=== PATIENT | female | born 2000 | race Hispanic/Latino ===

== ENCOUNTER 2020-04-06 05:06 | Emergency (ER) | payer BC, OTHER ==
[2020-04-06] MEDS ORDERED: NA CHLORIDE 0.9% 1,000 ML ONE (05:38)
--- NOTE | 2020-04-06 05:54 | EDPHYS ---
Physician Documentation [facility] Name: Cruzito Eastman Age: 19 yrs Sex: Female : 2000 Arrival Date: 04/06/2020 Time: 05:10 Bed 6 Private MD: Apurva Fleming ED Physician Matthew Klein HPI: 04/06 05:45 This 19 yrs old Female presents to ER via Ambulatory with complaints of Psych juan Problem. 05:45 The patient presents to the emergency department with anxiety, depression, suicide juan ideation, but the patient has no formulated plan. Onset: The symptoms/episode began/occurred just prior to arrival. Past psychiatric history: Prior diagnosis: bipolar disorder, depression, Psychiatric medications include: Zoloft, risperdone. Associated signs and symptoms: Pertinent positives; suicide ideation. Severity of symptoms: At their worst the symptoms were moderate in the emergency department the symptoms are unchanged are worse mildly. The patient has experienced similar episodes in the past, several times. 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 - Social history:: Smoking status: Patient denies any tobacco usage or history of. Patient uses street drugs, marijuana, Patient/guardian denies using alcohol. ROS: 05:48 Constitutional: Negative for fever, chills, and weight loss, Eyes: Negative for injury, juan pain, redness, and discharge, ENT: Negative for injury, pain, and discharge, Neck: Negative for injury, pain, and swelling, Cardiovascular: Negative for chest pain, palpitations, and edema, Respiratory: Negative for shortness of breath, cough, wheezing, and pleuritic chest pain, Abdomen/GI: Negative for abdominal pain, nausea, vomiting, diarrhea, and constipation, Back: Negative for injury and pain, : Negative for injury, bleeding, discharge, and swelling, MS/Extremity: Negative for injury and deformity, Skin: Negative for injury, rash, and discoloration, Neuro: Negative for headache, weakness, numbness, tingling, and seizure, Allergy/Immunology: Negative for hives, rash, and allergies, Endocrine: Negative for neck swelling, polydipsia, polyuria, polyphagia, and marked weight changes, Hematologic/Lymphatic: Negative for swollen nodes, abnormal bleeding, and unusual bruising. 05:48 Psych: Positive for anxiety, depression, suicidal ideation. Exam: 05:48 Constitutional: This is a well developed, well nourished patient who is awake, alert, juan and in no acute distress. Head/Face: Normocephalic, atraumatic. Eyes: Pupils equal round and reactive to light, extra-ocular motions intact. Lids and lashes normal. Conjunctiva and sclera are non-icteric and not injected. Cornea within normal limits. Periorbital areas with no swelling, redness, or edema. ENT: Nares patent. No nasal discharge, no septal abnormalities noted. Tympanic membranes are normal and external auditory canals are clear. Oropharynx with no redness, swelling, or masses, exudates, or evidence of obstruction, uvula midline. Mucous membranes moist. Neck: Trachea midline, no thyromegaly or masses palpated, and no cervical lymphadenopathy. Supple, full range of motion without nuchal rigidity, or vertebral point tenderness. No Meningismus. Chest/axilla: Normal chest wall appearance and motion. Nontender with no deformity. No lesions are appreciated. Cardiovascular: Regular rate and rhythm with a normal S1 and S2. No gallops, murmurs, or rubs. Normal PMI, no JVD. No pulse deficits. Respiratory: Lungs have equal breath sounds bilaterally, clear to auscultation and percussion. No rales, rhonchi or wheezes noted. No increased work of breathing, no retractions or nasal flaring. Abdomen/GI: Soft, non-tender, with normal bowel sounds. No distension or tympany. No guarding or rebound. No evidence of tenderness throughout. Back: No spinal tenderness. No costovertebral tenderness. Full range of motion. Skin: Warm, dry with normal turgor. Normal color with no rashes, no lesions, and no evidence of cellulitis. MS/ Extremity: Pulses equal, no cyanosis. Neurovascular intact. Full, normal range of motion. Neuro: Awake and alert, GCS 15, oriented to person, place, time, and situation. Cranial nerves II-XII grossly intact. Motor strength 5/5 in all extremities. Sensory grossly intact. Cerebellar exam normal. Normal gait. 05:48 Psych: Behavior/mood is cooperative, suicidal, Affect is calm, Oriented to Patient has no thoughts/intents to harm self or others. Judgement / Insight is normal. Memory is normal. Delusions/hallucinations are not present. 06:05 ECG was reviewed by the Attending Physician. [facility] Vital Signs: 05:30 BP 136 / 94; Pulse 98; Resp 16 S; Temp 98.7(O); Pulse Ox 99% on R/A; Weight 58.97 kg bb (R); Height 5 ft. 3 in. (160.02 cm) (R); Pain 2/10; 09:27 BP 133 / 89; Pulse 88; Resp 17; Pulse Ox 99% ; rb1 05:30 Body Mass Index 23.03 (58.97 kg, 160.02 cm) bb MDM: 05:23 Patient medically screened. juan 05:50 Differential diagnosis: drug withdrawal. acute psychotic break, depression. Data juan reviewed: vital signs, nurses notes, lab test result(s), EKG. Data interpreted: monitor and storage bin tender: rate is 98 beats/min, rhythm is atrial fibrillation, Pulse oximetry: on room air is 99 %. Test interpretation: by ED physician or midlevel provider: ECG. Counseling: I had a detailed discussion with the patient and/or guardian regarding: the historical points, exam findings, and any diagnostic results supporting the discharge/admit diagnosis, lab results, the need to transfer to another facility, for higher level of care, [facility] does not immediately have the required specialist. 09:22 ED course: Report given to Dr. Naranjo. The patient remained stable in the ED and did kdr not require any intervention. 04/06 05:19 Order name: Acetaminophen [facility] 04/06 05:19 Order name: Basic Metabolic Panel [facility] 04/06 05:19 Order name: CBC with Diff [facility] 04/06 05:19 Order name: ETOH Level [facility] 04/06 05:19 Order name: Hepatic Function [facility] 04/06 05:19 Order name: PT-INR; Complete Time: 06:49 [facility] 04/06 05:19 Order name: Ptt, Activated; Complete Time: 06:49 [facility] 04/06 05:19 Order name: Salicylate; Complete Time: 06:49 [facility] 04/06 05:19 Order name: Urine Drug Screen; Complete Time: 06:49 [facility] 04/06 05:19 Order name: Acetaminophen Level; Complete Time: 06:49 [facility] 04/06 05:19 Order name: Basic Metabolic Panel; Complete Time: 06:49 [facility] 04/06 05:19 Order name: CBC with Automated Diff; Complete Time: 06:49 [facility] 04/06 05:19 Order name: Alcohol Serum/Plasma; Complete Time: 06:49 [facility] 04/06 05:19 Order name: Liver (Hepatic) Function; Complete Time: 06:49 [facility] 04/06 05:19 Order name: Urine Test (obtain specimen); Complete Time: 05:52 [facility] 04/06 05:19 Order name: EKG; Complete Time: 05:19 [facility] 04/06 05:19 Order name: EKG - Nurse/Tech; Complete Time: 06:22 [facility] 04/06 05:19 Order name: IV Saline Lock; Complete Time: 05:46 [facility] 04/06 05:19 Order name: Labs collected and sent; Complete Time: 05:46 [facility] 04/06 05:19 Order name: Urine Dipstick-Ancillary (obtain specimen); Complete Time: 05:52 [facility] 04/06 05:52 Order name: Urine Dipstick--Ancillary (enter results) 04/06 05:52 Order name: Urine --Ancillary (enter results) [facility] 04/06 06:50 Order name: SARS-COV-2 RT PCR EDMS EC:05 Rate is 80 beats/min. Rhythm is regular. QRS [place] is Normal. MO interval is normal. QRS juan interval is normal. QT interval is normal. No Q waves. T waves are Normal. No ST changes noted. Clinical impression: NSR w/ Non-specific ST/T Changes and No evidence of ischemia. Interpreted by me. Administered Medications: 05:46 Drug: NS 0.9% 1000 ml Route: IV; Rate: 1 bolus; Site: right hand; rr5 06:30 Follow up: IV Status: Completed infusion; IV Intake: 1000ml lp1 Disposition: 04/06/20 05:52 Transfer ordered to Psych Facility. Diagnosis are Bipolar disorder, Major depressive disorder, recurrent, Suicidal ideations. - Reason for transfer: Higher level of care. - Accepting physician is tp psych. - Condition is Stable. - Problem is new. - Symptoms have improved. Signatures: Dispatcher [employer] [facility] Matthew Klein MD MD cha Rittger, Kevin, MD MD kdr Ballard, Brenda RN RN bb Natalia Kirk, RN RN rb1 Brice Tinoco RN RN rr5 Daniela Donald RN lp1 Corrections: (The following items were deleted from the chart) 06:50 06:06 CORONAVIRUS+MR.LAB.BRZ ordered. [facility] 09:28 05:52 04/06/2020 05:52 Transfer ordered to Psych Facility. Diagnosis is Bipolar rb1 disorder; Major depressive disorder, recurrent; Suicidal ideations. Reason for transfer: Higher level of care. Accepting physician is tp psych. Condition is Stable. Problem is new. Symptoms have improved. juan
--- NOTE | 2020-04-06 05:54 | ER ---
Nurse's Notes [facility] Name: Cruzito Eastman Age: 19 yrs Sex: Female : 2000 Arrival Date: 04/06/2020 Time: 05:10 Bed 6 Private MD: Apurva Fleming Diagnosis: Bipolar disorder;Major depressive disorder, recurrent;Suicidal ideations Presentation: 04/06 05:30 Chief complaint: Patient states: she is going through a lot of changes in her life bb right now and she does not do well with change consequently she feels like if she goes home tonight she will try to kill herself. She has a plan of cutting her wrists and she has had a past history of suicidal ideations. Coronavirus screen: At this time, the client does not indicate any symptoms associated with coronavirus-19. Ebola Screen: No symptoms or risks identified at this time. Initial Sepsis Screen: Does the patient meet any 2 criteria? No. Patient's initial sepsis screen is negative. Does the patient have a suspected source of infection? No. Patient's initial sepsis screen is negative. Risk Assessment: Do you want to hurt yourself or someone else? Patient reports no desire to harm self or others. Onset of symptoms was April 06, 2020. 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 - Social history:: Smoking status: Patient denies any tobacco usage or history of. Patient uses street drugs, marijuana, Patient/guardian denies using alcohol. Screenin:40 Abuse screen: Denies threats or abuse. Nutritional screening: No deficits noted. bb Tuberculosis screening: No symptoms or risk factors identified. Fall Risk None identified. Assessment: 06:00 General: Appears in no apparent distress. Behavior is crying. Pain: Denies pain. Neuro: lp1 Level of Consciousness is awake, alert, obeys commands, Oriented to person, place, time, situation. Cardiovascular: Patient's skin is warm and dry. Respiratory: Respiratory effort is even, unlabored. GI: Abdomen is non-distended. : No signs and/or symptoms were reported regarding the genitourinary system. EENT: No signs and/or symptoms were reported regarding the EENT system. Derm: Skin is pink, warm \T\ dry. Musculoskeletal: No deficits noted. 06:41 Reassessment: Patient appears in no apparent distress at this time. Patient is alert, lp1 oriented x 3, equal unlabored respirations, skin warm/dry/pink. Patient 's mother at bedside. 06:54 Reassessment: Patient upset with mother, requests to have mother removed; mother left lp1 at this time. 06:58 Reassessment: Nurse to nurse report given to Daisy at [facility]. lp1 07:05 General: Appears in no apparent distress. comfortable, Behavior is calm, cooperative. rb1 Neuro: Level of Consciousness is awake, alert, obeys commands, Oriented to person, place, time, situation. Respiratory: Airway is patent Respiratory effort is even, unlabored, Respiratory pattern is regular, symmetrical. Derm: Skin is pink, warm \T\ dry. 07:58 Reassessment: Spoke to the pt. grandmother via telephone with pt permission, rb1 grandmother was updated on POC. 08:00 Reassessment: Patient appears in no apparent distress at this time. Patient and/or rb1 family updated on plan of care and expected duration. Pain level reassessed. Patient is alert, oriented x 3, equal unlabored respirations, skin warm/dry/pink. 08:17 Reassessment: With the pt. permission, I gave her grandmother her keys to take home. rb1 09:00 Reassessment: Patient appears in no apparent distress at this time. No changes from rb1 previously documented assessment. 09:26 Reassessment: Gave report to [facility]. Information from the SBAR was given, all rb1 questions asked and answered. Sent pt. belongings with the pt upon transfer. Psych: 05:30 Safety Checks: Personal items have been removed. Door is open. No visitors are present lp1 at this time. 05:38 Subjective: Patient's mood is sad, Having thoughts of suicide. Plan for suicide is cut bb her wrists. Objective: Patient is cooperative, Speech is pressured. Interventions: Removed personal items and placed in bag. Patient placed in hospital gown. Urine collected and sent for urine drug test. Suicide Risk Assessment: Sad Person Scale: Sex of patient: Female: Score 0 points. Age of patient: Score 1 point if patient 15-34. Depression: Score 1 point if signs of depression are present. Previous Attempt: Score 1 point if patient has previously attempted suicide. Substance Abuse: Score 1 point if patient abuses alcohol or drugs. Rational Thinking: Score 0 point if patient has rational thinking. Social Support: Score 1 point if social support is lacking and/or unavailable. Organized Plan: Score 1 point if patient had a plan in place. TOTAL POINTS: If total points are 5-6, proposed clinical action is to strongly consider hospitalization, depending upon confidence in the follow-up arrangement. Implement suicide precautions. 05:40 Patient uses marijuana. bb Vital Signs: 05:30 BP 136 / 94; Pulse 98; Resp 16 S; Temp 98.7(O); Pulse Ox 99% on R/A; Weight 58.97 kg bb (R); Height 5 ft. 3 in. (160.02 cm) (R); Pain 2/10; 09:27 BP 133 / 89; Pulse 88; Resp 17; Pulse Ox 99% ; rb1 05:30 Body Mass Index 23.03 (58.97 kg, 160.02 cm) bb ED Course: 05:10 Patient arrived in ED. am2 05:10 Apurva Fleming MD is Private Physician. am2 05:18 Matthew Klein MD is Attending Physician. juan 05:35 Triage completed. bb 05:37 Arm band placed on Patient placed in an exam room, on a stretcher, on pulse oximetry. bb 05:40 Patient has correct armband on for positive identification. Placed in gown. Bed in low bb position. Side rails up X2. Warm blanket given. 05:44 Inserted saline lock: 20 gauge in right hand, using aseptic technique. Blood collected. rr5 06:21 Daniela Donald, NEIL is Primary Nurse. lp1 06:37 Faxed pt. clinical's to [facility]. ar5 06:54 connected Daisy Cartwright from [facility] with Daniela Cartwright for patient transfer ar5 consultation. 07:15 administrative approval given by Lupe Philip/ patient has been accepted to [facility]/ Dr. Naranjo has accepted the patient in transfer. 07:[address]aranjo with Dr. Choi for patient transfer consultation. 08:33 Primary Nurse role handed off by Daniela Donald, RN rb1 08:33 Natalia Kirk, RN is Primary Nurse. rb1 09:28 No provider procedures requiring assistance completed. IV discontinued, intact, rb1 bleeding controlled, No redness/swelling at site. Pressure dressing applied. Administered Medications: 05:46 Drug: NS 0.9% 1000 ml Route: IV; Rate: 1 bolus; Site: right hand; rr5 06:30 Follow up: IV Status: Completed infusion; IV Intake: 1000ml lp1 Intake: 06:30 IV: 1000ml; Total: 1000ml. lp1 Outcome: 05:52 ER care complete, transfer ordered by . [facility] 09:28 Patient left the ED. rb1 09:28 Transferred by ground EMS Transfer form completed. rb1 09:28 Condition: stable 09:28 Instructed on the need for transfer. Signatures: Matthew Klein MD MD cha Ballard, Brenda, RN RN bb Daniela Donald, RN RN lp1 Natalia Kirk, RN RN rb1 Judy Sanders am2 Lucila Avila Raymond, RN RN rr5 Kim Chen ar5 Corrections: (The following items were deleted from the chart) 07:31 07:29 administrative approval given by Lupe Philip/ patient has been accepted to [facility]/ Dr. Naranjo has accepted the patient in transfer. 09:34 09:26 Reassessment: Gave report to [facility]. Information from the SB[facility] was given, rb1 all questions asked and answered. rb1
[2020-04-06 05:57] LABS: Absolute Lymphocytes (CBC) 2.8 K/uL (0.7-4.9); Hematocrit 40.8 % (36.0-45.0); Lymphocytes % 33.4 % (15.3-44.8); MPV 8.4 fL (7.6-11.3); RBC Red Blood Cell Count 4.73 M/uL (3.86-4.86)
[2020-04-06 06:02] LABS: Protime INR 1.03
[2020-04-06 06:03] LABS: Barbiturates NEGATIVE (NEGATIVE); Benzodiazepines NEGATIVE (NEGATIVE); Cocaine NEGATIVE (NEGATIVE); METHAMPHETAM NEGATIVE (NEGATIVE); Methadone NEGATIVE (NEGATIVE); Opiates NEGATIVE (NEGATIVE); Phencyclidine NEGATIVE (NEGATIVE); THC Cannibis POSITIVE (NEGATIVE)
[2020-04-06 06:20] LABS: ALT/SGPT 25 U/L (12-78); AST/SGOT 19 U/L (15-37); Albumin 4.4 g/dL (3.4-5.0); Alkaline Phosphatase 113 U/L (45-117); BUN Blood Urea Nitrogen 11 mg/dL (7-18); Bicarbonate 25 mmol/L (21-32); Bilirubin Direct 0.1 mg/dL (0-0.2); Bilirubin Total 0.5 mg/dL (0.2-1.0); Glucose Level 94 mg/dL (74-106); Potassium 3.7 mmol/L (3.5-5.1); Protein, Total 8.5 g/dL (6.4-8.2); Sodium Level 140 mmol/L (136-145)
[2020-04-06 08:18] LABS: Urine Blood NEGATIVE (NEG); Urine Glucose NEGATIVE (NEG); Urine Protein NEGATIVE (NEG); Urine Specific Gravity >1.030 (1.005-1.030)
--- NOTE | 2020-04-06 08:20 | EKG ---
Test Date: 2020-04-06 Test Time: 05:55:28 [employer] Laborer: CASANDRA MEASUREMENT RESULTS: Intervals: Rate: 80 GA: 114 QRSD: 74 QT: 384 QTc: 442 [place]: P: 57 GA: 114 QRS: 76 T: 38 INTERPRETIVE STATEMENTS: Normal sinus rhythm with sinus arrhythmia Normal ECG No previous ECG available for comparison Electronically Signed On 04-06-20 08:19:13 CDT by Igor Wilder
[2020-04-06 09:46] VITALS: TEMP 98.7; O2SAT 99
[2020-04-06 09:48] VITALS: BP 133/89
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
== END 2020-04-06 09:28 ==
LOC: ER 05:06
DX: F33.9 Major depressive disorder, recurrent, unspecified (principal); Z20.828 Contact with and (suspected) exposure to other viral communicable diseases
CPT/HCPCS: 93005; 85025; 80048; 36415; 80320; 80329 ×2; 81025; 85610; 80076; 80307 ×8; 85730; 81003; 96360; 99285; U0003; J7030

== ENCOUNTER 2020-11-21 08:07 | Emergency (ER) | payer BC ==
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
[2020-11-21 10:26] LABS: Urine Blood Negative (Negative); Urine Glucose Negative (Negative); Urine Protein Negative (Negative); Urine pH 7.5 (5.0-7.0)
[2020-11-21 10:57] LABS: Absolute Lymphocytes (CBC) 1.8 K/uL (0.7-4.9); Basophils % 0.8 % (0-1.3); Lymphocytes % 25.5 % (15.3-44.8); MPV 8.6 fL (7.6-11.3); RBC Red Blood Cell Count 4.68 M/uL (3.86-4.86)
[2020-11-21] MEDS ORDERED: NA CHLORIDE 0.9% 1,000 ML ONE (11:09)
[2020-11-21] MEDS ORDERED: ONDANSETRON 4 MG/2 ML VIAL ONE (11:09)
[2020-11-21 11:19] LABS: ALT/SGPT 20 U/L (12-78); AST/SGOT 18 U/L (15-37); Alkaline Phosphatase 86 U/L (45-117); BUN Blood Urea Nitrogen 9 mg/dL (7-18); Bicarbonate 26 mmol/L (21-32); Bilirubin Direct 0.2 mg/dL (0-0.2); Bilirubin Total 0.7 mg/dL (0.2-1.0); Glucose Level 92 mg/dL (74-106); Lipase 83 U/L (73-393); Potassium 3.9 mmol/L (3.5-5.1); Protein, Total 7.9 g/dL (6.4-8.2); Sodium Level 138 mmol/L (136-145)
[2020-11-21 11:28] LABS: Urine Bacteria <20 /HPF (<20); Urine RBC <5 /HPF (NONE SEEN); Urine Urothelial Cells <5 /HPF (NONE SEEN)
--- NOTE | 2020-11-21 12:02 | RAD REPORT ---
EXAM DESCRIPTION: CT - Abdomen Pelvis W Contrast - 11/21/2020 11:36 am CLINICAL HISTORY: Abdominal pain/vomiting COMPARISON: none. TECHNIQUE: Computed axial tomography of the abdomen pelvis was obtained. 100 cc Isovue-300 was admin istered intravenously. Oral contrast was not requested which limits evaluation of bowel. All CT scans are performed using dose optimization technique as appropriate and may include automated exposure control or mA/KV adjustment according to patient size. FINDINGS: The liver, spleen, pancreas, adrenal and kidneys appear unremarkable. There is no evidence of diverticulitis. Normal appendix No adnexal mass. Trace amount of free fluid IMPRESSION: No acute abnormality is displayed.
--- NOTE | 2020-11-21 12:28 | ER ---
Nurse's Notes [facility] Name: Cruzito Eastman Age: 20 yrs Sex: Female : 2000 Arrival Date: 11/21/2020 Time: 08:11 Bed 16 Private MD: Diagnosis: Nausea with vomiting, unspecified;Diarrhea, unspecified Presentation: 11/21 09:10 Chief complaint: Patient states: vomiting and diarrhea that began 2-3 days ago. Pt aa5 states "the smell and texture of food just make me sick to my stomach and I can't eat" Reports intermittent abdominal cramping. 09:10 Coronavirus screen: diarrhea, nausea, vomiting. Ebola Screen: Patient negative for aa5 fever greater than or equal to 101.5 degrees Fahrenheit, and additional compatible Ebola Virus Disease symptoms. Initial Sepsis Screen: Does the patient meet any 2 criteria? No. Patient's initial sepsis screen is negative. Does the patient have a suspected source of infection? No. Patient's initial sepsis screen is negative. Risk Assessment: Do you want to hurt yourself or someone else? Patient reports no desire to harm self or others. Onset of symptoms was November 2020. 09:10 Acuity: DONI 3 aa5 09:10 Method Of Arrival: Ambulatory aa5 Historical: - Allergies: 09:11 No Known Allergies; aa5 - Home Meds: 09:11 None [Active]; aa5 - PMHx: 09:11 Bipolar disorder; PTSD; Asthma; aa5 - PSHx: 09:11 ear surgery; aa5 - Immunization history:: Adult Immunizations up to date. - Social history:: Smoking status: Patient denies any tobacco usage or history of. - Family history:: not pertinent. - Hospitalizations: : No recent hospitalization is reported. Screenin:00 Abuse screen: Denies threats or abuse. Denies injuries from another. Nutritional aj1 screening: No deficits noted. Tuberculosis screening: No symptoms or risk factors identified. 14:06 Fall Risk None identified. aj1 Assessment: 10:00 General: Appears in no apparent distress. comfortable, Behavior is calm, cooperative, aj1 appropriate for age. Pain: Complains of pain in abdomen Pain currently is 3 out of 10 on a pain scale. Neuro: Level of Consciousness is awake, alert, obeys commands, Oriented to person, place, time, situation. Cardiovascular: Patient's skin is warm and dry. Respiratory: Airway is patent Respiratory effort is even, unlabored, Respiratory pattern is regular, symmetrical. GI: Abdomen is flat, non-distended, Bowel sounds present X 4 quads. Abd is soft and non tender X 4 quads. Reports diarrhea, nausea, Patient currently denies vomiting. : No signs and/or symptoms were reported regarding the genitourinary system. EENT: No signs and/or symptoms were reported regarding the EENT system. Derm: No signs and/or symptoms reported regarding the dermatologic system. Skin is pink, warm \\T\\ dry. normal. Musculoskeletal: No signs and/or symptoms reported regarding the musculoskeletal system. Circulation, motion, and sensation intact. 11:23 Reassessment: Patient appears in no apparent distress at this time. No changes from [facility] previously documented assessment. Patient and/or family updated on plan of care and expected duration. Pain level reassessed. Patient is alert, oriented x 3, equal unlabored respirations, skin warm/dry/pink. 12:30 Reassessment: Patient appears in no apparent distress at this time. No changes from aj1 previously documented assessment. Patient and/or family updated on plan of care and expected duration. Pain level reassessed. Patient is alert, oriented x 3, equal unlabored respirations, skin warm/dry/pink. 13:30 Reassessment: Patient appears in no apparent distress at this time. No changes from [facility] previously documented assessment. Patient and/or family updated on plan of care and expected duration. Pain level reassessed. Patient is alert, oriented x 3, equal unlabored respirations, skin warm/dry/pink. Vital Signs: 09:10 BP 135 / 99; Pulse 76; Resp 18 S; Temp 99.0(O); Pulse Ox 99% on R/A; Weight 61.23 kg aa5 (R); Height 5 ft. 2 in. (157.48 cm) (R); Pain 0/10; 11:25 BP 115 / 75; Pulse 93; Resp 16; Pulse Ox 100% on R/A; aj1 14:05 BP 122 / 65; Pulse 88; Resp 16; Pulse Ox 100% on R/A; aj1 09:10 Body Mass Index 24.69 (61.23 kg, 157.48 cm) aa5 ED Course: 08:11 Patient arrived in ED. as 09:11 Arm band placed on. aa5 09:13 Triage completed. aa5 09:46 Magno Herbert MD is Attending Physician. rn 09:51 Jade Rodas RN is Primary Nurse. aj1 10:00 Patient has correct armband on for positive identification. Bed in low position. Call aj1 light in reach. 10:00 No provider procedures requiring assistance completed. aj1 10:30 Initial lab(s) drawn, by me, sent to lab. COVID swab sent to lab. Inserted saline lock: aj1 20 gauge in left antecubital area, using aseptic technique. Blood collected. 11:36 CT Abd/Pelvis - IV Contrast Only In Process Unspecified. EDMS 14:05 IV discontinued, intact, bleeding controlled, No redness/swelling at site. Pressure zb dressing applied. Administered Medications: 11:02 Drug: Zofran (Ondansetron) 4 mg Route: IVP; Site: left antecubital; aj1 14:07 Follow up: Response: No adverse reaction aj1 11:02 Drug: NS 0.9% 1000 ml Route: IV; Rate: 1000 ml; Site: left antecubital; aj1 14:06 Follow up: IV Status: Completed infusion; IV Intake: 1000ml aj1 Intake: 14:06 IV: 1000ml; Total: 1000ml. aj Outcome: 12:27 Discharge ordered by . rn 14:05 Discharged to home ambulatory. zb 14:05 Condition: good 14:05 Discharge instructions given to patient, Instructed on discharge instructions, follow up and referral plans. medication usage, Demonstrated understanding of instructions, follow-up care, medications, Prescriptions given X 1. 14:07 Patient left the ED. aj1 Signatures: Dispatcher [employer] EDMS Jade Rodas RN RN aj1 Carmen Madrid as Magno Herbert MD MD rn Calderon, Audri, RN RN Ashley Nazario RN RN zb
--- NOTE | 2020-11-21 12:28 | EDPHYS ---
Physician Documentation [facility] Name: Cruzito Eastman Age: 20 yrs Sex: Female : 2000 Arrival Date: 11/21/2020 Time: 08:11 Bed 16 Private MD: ED Physician Magno Herbert HPI: 11/21 10:02 This 20 yrs old Female presents to ER via Ambulatory with complaints of rn Nausea/Vomiting. 10:02 The patient presents to the emergency department with nausea, vomiting, diarrhea. rn Onset: The symptoms/episode began/occurred 3 day(s) ago. Possible causes: unknown. The symptoms are aggravated by nothing. The symptoms are alleviated by nothing. Associated signs and symptoms: Pertinent positives: abdominal pain, diarrhea, nausea, vomiting, Pertinent negatives: fever, GI bleeding. Severity of symptoms: At their worst the symptoms were moderate in the emergency department the symptoms are unchanged. The patient has not experienced similar symptoms in the past. The patient has not recently seen a physician. Historical: - Allergies: 09:11 No Known Allergies; aa5 - Home Meds: 09:11 None [Active]; aa5 - PMHx: 09:11 Bipolar disorder; PTSD; Asthma; aa5 - PSHx: 09:11 ear surgery; aa5 - Immunization history:: Adult Immunizations up to date. - Social history:: Smoking status: Patient denies any tobacco usage or history of. - Family history:: not pertinent. - Hospitalizations: : No recent hospitalization is reported. ROS: 10:03 Constitutional: Negative for fever, chills, and weight loss, Eyes: Negative for injury, rn pain, redness, and discharge, Neck: Negative for injury, pain, and swelling, Cardiovascular: Negative for chest pain, palpitations, and edema, Respiratory: Negative for shortness of breath, cough, wheezing, and pleuritic chest pain, Abdomen/GI: + abd pain, + nausea, + diarrhea Back: Negative for injury and pain, : + increased frequency MS/Extremity: Negative for injury and deformity, Skin: Negative for injury, rash, and discoloration, Neuro: Negative for headache, weakness, numbness, tingling, and seizure. Exam: 10:03 Constitutional: This is a well developed, well nourished patient who is awake, alert, rn and in no acute distress. Ambulatory to room without assistance. Head/Face: Normocephalic, atraumatic. Eyes: Periorbital areas with no swelling, redness, or edema. ENT: MMM Cardiovascular: Regular rate and rhythm. No pulse deficits. Respiratory: No increased work of breathing, no retractions or nasal flaring. Abdomen/GI: soft, mild tenderness all 4 quadrants, no rebound, no masses Skin: Warm, dry MS/ Extremity: Pulses equal, no cyanosis. Neuro: Awake and alert, GCS 15 Vital Signs: 09:10 BP 135 / 99; Pulse 76; Resp 18 S; Temp 99.0(O); Pulse Ox 99% on R/A; Weight 61.23 kg aa5 (R); Height 5 ft. 2 in. (157.48 cm) (R); Pain 0/10; 11:25 BP 115 / 75; Pulse 93; Resp 16; Pulse Ox 100% on R/A; aj1 14:05 BP 122 / 65; Pulse 88; Resp 16; Pulse Ox 100% on R/A; aj1 09:10 Body Mass Index 24.69 (61.23 kg, 157.48 cm) aa5 MDM: 09:46 Patient medically screened. rn 12:26 Differential diagnosis: gastritis, cholecystitis, pancreatitis, appendicitis, viral rn gastroenteritis, gastroenteritis. 12:26 Data reviewed: vital signs, nurses notes, lab test result(s), radiologic studies, CT rn scan, and as a result, I will discharge patient. Counseling: I had a detailed discussion with the patient and/or guardian regarding: the historical points, exam findings, and any diagnostic results supporting the discharge/admit diagnosis, lab results, radiology results, the need for outpatient follow up, to return to the emergency department if symptoms worsen or persist or if there are any questions or concerns that arise at home. Response to treatment: the patient's symptoms have markedly improved after treatment, and as a result, I will discharge patient. Special discussion: Based on the patient's Hx, exam, and Dx evaluation, there is no indication for emergent surgery or inpatient Tx. It is understood by the patient/guardian that if the Sx's persist or worsen they need to return immediately for re-evaluation. I discussed with the patient/guardian in detail that at this point there is no indication for admission to the hospital. It is understood, however, that if the symptoms persist or worsen the patient needs to return immediately for re-evaluation. 11/21 09:56 Order name: Basic Metabolic Panel; Complete Time: 11:32 rn 11/21 09:56 Order name: CBC with Diff; Complete Time: 11:32 rn 11/21 09:56 Order name: Hepatic Function; Complete Time: 11:32 rn 11/21 09:56 Order name: Lipase; Complete Time: 11:32 rn 11/21 09:56 Order name: Urine Microscopic Only; Complete Time: 11:32 rn 11/21 09:56 Order name: IV Saline Lock; Complete Time: 10:48 rn 11/21 09:56 Order name: CT Abd/Pelvis - IV Contrast Only; Complete Time: 12:22 rn 11/21 10:25 Order name: Urine Dipstick-Ancillary; Complete Time: 11:32 [facility] 11/21 10:26 Order name: Urine --Ancillary (enter results) nm 11/21 10:26 Order name: Urine --Ancillary; Complete Time: 11:32 [facility] 11/21 14:00 Order name: SARS-COV-2 RT PCR [facility] 11/21 09:56 Order name: Labs collected and sent; Complete Time: 10:48 rn 11/21 09:56 Order name: Urine Test (obtain specimen); Complete Time: 10:30 11/21 09:56 Order name: Urine Dipstick-Ancillary (obtain specimen); Complete Time: 10:30 rn Administered Medications: 11:02 Drug: Zofran (Ondansetron) 4 mg Route: IVP; Site: left antecubital; aj1 14:07 Follow up: Response: No adverse reaction [facility] 11:02 Drug: NS 0.9% 1000 ml Route: IV; Rate: 1000 ml; Site: left antecubital; aj1 14:06 Follow up: IV Status: Completed infusion; IV Intake: 1000ml aj Disposition: 11/21/20 12:27 Discharged to Home. Impression: Nausea with vomiting, unspecified, Diarrhea, unspecified. - Condition is Stable. - Discharge Instructions: Diarrhea, Adult, Nausea and Vomiting, Adult. - Prescriptions for Zofran ODT 4 mg Oral tablet,disintegrating - place 1 tablet by TRANSLINGUAL route every 8 hours As needed; 20 tablet. - Medication Reconciliation Form, Thank You Letter, Antibiotic Education, Prescription Opioid Use form. - Follow up: Private Physician; When: As needed; Reason: Recheck today's complaints, Re-evaluation by your physician. - Problem is new. - Symptoms have improved. Signatures: Dispatcher [employer] [facility] Jade Rodas, RN RN aj1 Magno Herbert MD MD rn Calderon, Audri, RN RN aa5 Corrections: (The following items were deleted from the chart) 12:34 10:03 CORONAVIRUS+MR.LAB.BRZ ordered. [facility] 14:07 12:27 11/21/2020 12:27 Discharged to Home. Impression: Nausea with vomiting, aj1 unspecified; Diarrhea, unspecified. Condition is Stable. Forms are Medication Reconciliation Form, Thank You Letter, Antibiotic Education, Prescription Opioid Use. Follow up: Private Physician; When: As needed; Reason: Recheck today's complaints, Re-evaluation by your physician. Problem is new. Symptoms have improved. rn
[2020-11-21 14:15] VITALS: O2SAT 100
[2020-11-21 14:18] VITALS: TEMP 99
[2020-11-21 14:19] VITALS: BP 122/65
== END 2020-11-21 14:07 | disposition home or self-care (01) ==
LOC: ER 08:07
DX: R19.7 Diarrhea, unspecified (principal); Z20.822 Contact with and (suspected) exposure to COVID-19
CPT/HCPCS: 96361; 85025; 80048; 36415; 81025; 80076; 83690; 74177; 96374; 99284; U0003; Q9967; J7030; J2405; 81003; 81015

== ENCOUNTER 2021-05-26 20:55 | Emergency (ER) | payer BC ==
--- OUTSIDE RECORDS SUMMARY | 2021-05-26 20:59 | XMS REPORT | Continuity of Care Document ---
:2000 Author Organization [facility] t Address [address] [place] [address] Care Team Providers Name Role Phone Hudson Veliz Attending Clinician Merritt NELSON Attending Clinician Payers Payer Name Policy Type Policy Number Effective Date Expiration Date S ource [facility] [id number] 2014 00:00:00 [place]ILDR[place] [id number] 2017 HEALTH 00:00:00 Advance Directives Directive Decision Effective Termination Comments Source Date Date Healthcare Agents on N/A [facility] ersity FileNameRelationshipHealthcare [facility] Agent Medical RelationshipCommunicationMonica Branch WaldropMotherHealth Care [phone] (Mobile) Fatoumata AlmontearentFir [facility] [phone] (Work) Problems Condition Condition Condition Status Onset Resolution Last Treating Co mments Source Name Details Category Date Date Treatment Clinician Date Encounter Encounter Disease Active Uni vers for for 8-11 ity of Depo[place] Medical contracept contracept Br anch ion ion Well woman Well woman Disease Active U nivers exam exam 8-10 ity of 00:00: [place] 00 Medical Branch Bipolar Bipolar Disease Active Univers disorder, disorder, ity of current current [place] episode episode Medical mixed, mixed, Branch mild mild Left-sided Left-sided Problem Active C [facility] [...] - ion ion Memoria initiation initiation l [facility] Depression Depression Problem [facility] Bipolar Bipolar Problem Active [facility] affective affective Luke [facility] - disorder, disorder, Jose cori remission remission l status status [facility] unspecifie unspecifie en t d d Clinics Anxiety Anxiety Problem [facility] Left eye Left eye Problem [facility]ics PTSD PTSD Problem Active [facility] (post-trau (post-trau Cecily kes - matic matic Memoria stress stress l disorder) disorder) Outp ati ent Clinics Facial Facial Problem Active [facility] weakness weakness [facility] Gastroesop Gastroesop Diagnosis Active [facility] hageal hageal Lukes - reflux reflux Memoria disease, disease, l esophagiti esophagiti Ou tpati s presence s presence en t not not Clinics specified specified Nausea Nausea Problem Active [facility] without without [facility]ukes - vomiting vomiting Memori a l [facility] Blood in Blood in Problem Active [facility] stool [facility] Anal pain Anal pain Problem Active [facility] Epigastric Epigastric Diagnosis Active [facility] pain pain [facility] Flatus Flatus Problem Active [facility] Allergies, Adverse Reactions, Alerts Allergy Allergy Status Severity Reaction(s) Onset Inactive Treating Comm ents Source Name Type Date Date Clinician NO KNOWN Drug Active Univers ALLERGIE Class ity of S [facility] Social History Social Habit Start Date Stop Date Quantity Comments Source Exposure to Unable to assess Univers ity of SARS-CoV-2 [facility] (event) Branch Tobacco use and 2021-01-07 2021-01-07 Never used Universit y of exposure 00:00:00 00:00:[address] [facility] Alcohol intake 2021-01-07 2021-01-07 Current University of 00:00:00 00:00:00 non-drinker of [facility] alcohol Branch (finding) Sex Assigned At [birth year] Universit y of 00:00:00 00:00:[address] [facility] Smoking Status Start Date Stop Date Source Never smoker [facility] Medications Ordered Filled Start Stop Current Ordering Indication Dosage Frequency Signature Comments Components Source Medication Medication Date Date Medication? Clinician (SIG) Name Name ondansetron 2020- No 4mg 4 mg, Univ ers (ZOFRAN-ODT 01-07- Oral, ity of ) 22:30: 21:27 ONCE, 1 [place] disintegrat 00 :00 dose, Tue Med ical ing tablet 01/07/21 at Bran ch 4 mg 1730, Routine MEDROXYPROG 2020- No by Unive rs ESTERONE 01-07 Intramuscu ity of ACETATE 21:17: 00:00 lar route. Chip as (DEPO-PROVE 23 :00 Medical RA IM) Branch ondansetron Yes [id number] 4mg Take 1 Univers (ZOFRAN - tablet by ity of ODT) 4 mg 00:00: mouth [place] disintegrat 00 every 8 Medic al ing tablet (eight) Branch hours as needed for Nausea and Vomiting (N/V). methocarbam 2020- No 500mg 500 mg, U nivers oL 2-26 - Oral, ity of (ROBAXIN) 16:15: 15:20 ONCE, 1 [place] tablet 500 00 :00 dose, Fri Medi ivon mg 08/30/20 at Branch 1015, Routine methocarbam Yes [id number] 750mg Take 1 Univers oL 750 mg 2-26 tablet by ity o f tablet 00:00: mouth 4 [place] 00 (four) Medical times Branch daily as needed for Pain (scale 7-10). methocarbam 2020- No [id number] 750mg Take 1 Univers oL 750 mg 2-26 -06 tablet by ity of tablet 00:00: 00:00 mouth 4 [place] 00 :00 (four) Medical times Branch daily as needed for Pain (scale 7-10). Omeprazole Omeprazole Yes Apurva [address] [facility] 3-16 [facility] - 00:[facility]: Memoria 00 l Outpati ent Clinics Dicyclomine Dicyclomine 2019- No Apurva [address] HCl HCl 3-16 03-26 Millender as needed Luke s - 00:00: 00:00 for Memoria 00 :00 stomach l pain Outpati ent Clinics MEDROXYPROG Yes by Univer s ESTERONE 2-08 Intramuscu ity o f ACETATE 15:19: lar route. [place] (DEPO-PROVE 02 Medical RA IM) Branch albuterol Yes [id number] 2{puff} Inhale 2 Univers 90 2-08 Puffs ity of mcg/actuati 00:00: every 4 Chip as on inhaler 00 (four) Medical hours as Branch needed for Wheezing or Shortness of Breath. promethazin Yes [id number] 5mL Take 5 mL Univers e-dextromet 2-08 by mouth 4 it y of horphan 00:00: (four) [place] 6.25-15 00 times Medical mg/5 mL daily as Branch syrup needed for Cough. fluticasone Yes [id number] 2{spray Use 2 Univers 50 2-08 } Sprays in ity of mcg/actuati 00:00: each [place] on nasal 00 nostril Medical spray daily. Branch albuterol Yes [id number] 2{puff} Inhale 2 Univers 90 2-08 Puffs ity of mcg/actuati 00:00: every 4 Chip as on inhaler 00 (four) Medical hours as Branch needed for Wheezing or Shortness of Breath. promethazin 2020- No [id number] 5mL Take 5 mL Univers e-dextromet 2-08 07-06 by mouth 4 i ty of horphan 00:00: 00:00 (four) [place] 6.25-15 00 :00 times Medical mg/5 mL daily as Branch syrup needed for Cough. fluticasone 2020- No [id number] 2{spray Use 2 Univers 50 2-08 07-06 } Sprays in ity of mcg/actuati 00:00: 00:00 each [place] on nasal 00 :00 nostril Medical spray daily. Branch traMADOL 50 2016-07 Yes 50mg Take 1 Univ ers mg tablet 1-18 tablet by ity o f 00:00: mouth [place] 00 every 6 Medical (six) Branch hours as needed for Pain (scale 7-10). traMADOL 50 2016-07- No 50mg Take 1 Uni vers mg tablet 07-22 tablet by ity of 00:00: 00:00 mouth [place] 00 :00 every 6 Medical (six) Branch hours as needed for Pain (scale 7-10). Immunizations Ordered Filled Immunization Date Status Comments [facility] e Immunization Name Name DTAP 2001-06-22 Completed University of 00:00:[address] [facility] HIB 4 Dose Schedule 2001-06-22 Completed Unive rsity of 00:00:[address] [facility] MMR 2001-06-22 Completed University of 00:00:[address] [facility] Varicella 2001-06-22 Completed University of (varivax)(chicken 00:00:00 [facility] edical pox) Branch DTAP 2001-06-22 Completed University of 00:00:[address] [facility] HIB 4 Dose Schedule 2001-06-22 Completed Unive rsity of 00:00:[address] [facility] MMR 2001-06-22 Completed University of 00:00:[address] [facility] Varicella 2001-06-22 Completed University of (varivax)(chicken 00:00:00 [facility] edical pox) Branch Hep B, Adol or Pedi 2001-02-08 Completed Unive rsity of Dosage 00:00:[address] [facility] Hep B, Adol or Pedi 2001-02-08 Completed Unive rsity of Dosage 00:00:[address] [facility] Hep B, Adol or Pedi 2001-02-07 Completed Unive rsity of Dosage 00:00:[address] [facility] Hep B, Adol or Pedi 2001-02-07 Completed Unive rsity of Dosage 00:00:[address] [facility] DTAP 2000 Completed University of 00:00:[address] [facility] HIB 4 Dose Schedule 2000 Completed Unive rsity of 00:00:[address] [facility] Polio (IPV/OPV) 2000 Completed Universit y of 00:00:[address] [facility] DTAP 2000 Completed University of 00:00:[address] [facility] HIB 4 Dose Schedule 2000 Completed Unive rsity of 00:00:[address] [facility] Pneumococcal 7 2000 Completed University of Conjugate, PCV7 00:00:00 [facility] ical (Prevnar7) Branch Polio (IPV/OPV) 2000 Completed Universit y of 00:00:[address] [facility] DTAP 2000 Completed University of 00:00:[address] [facility] HIB 4 Dose Schedule 2000 Completed Unive rsity of 00:00:[address] [facility] Polio (IPV/OPV) 2000 Completed Universit y of 00:00:[address] [facility] DTAP 2000 Completed University of 00:00:[address] [facility] HIB 4 Dose Schedule 2000 Completed Unive rsity of 00:00:[address] [facility] Pneumococcal 7 2000 Completed University of Conjugate, PCV7 00:00:00 [facility] ical (Prevnar7) Branch Polio (IPV/OPV) 2000 Completed Universit y of 00:00:[address] [facility] DTAP 2000 Completed University of 00:00:[address] [facility] HIB 4 Dose Schedule 2000 Completed Unive rsity of 00:00:[address] [facility] Polio (IPV/OPV) 2000 Completed Universit y of 00:00:[address] [facility] DTAP 2000 Completed University of 00:00:[address] [facility] HIB 4 Dose Schedule 2000 Completed Unive rsity of 00:00:[address] [facility] Polio (IPV/OPV) 2000 Completed Universit y of 00:00:[address] [facility] DTAP 2000 Completed University of 00:00:[address] [facility] Hep B, Adol or Pedi 2000 Completed Unive rsity of Dosage 00:00:[address] [facility] HIB 4 Dose Schedule 2000 Completed Unive rsity of 00:00:[address] [facility] Polio (IPV/OPV) 2000 Completed Universit y of 00:00:[address] [facility] DTAP 2000 Completed University of 00:00:[address] [facility] Hep B, Adol or Pedi 2000 Completed Unive rsity of Dosage 00:00:[address] [facility] HIB 4 Dose Schedule 2000 Completed Unive rsity of 00:00:[address] [facility] Polio (IPV/OPV) 2000 Completed Universit y of 00:00:00 [place] [facility] Vital Signs Vital Name Observation Time Observation Value Comments Source Systolic blood 2021-01-07 19:38:00 132 mm[Hg] Univer sity of pressure [place] [facility] Diastolic blood 2021-01-07 19:38:00 97 mm[Hg] Unive rsity of pressure [place] [facility] Heart rate 2021-01-07 19:38:00 87 /min Universi ty of [place] [facility] Body temperature 2021-01-07 19:38:00 36.44 Tiffanie Univ ersity of [place] [facility] Respiratory rate 2021-01-07 19:38:00 18 /min Univ ersity of [place] [facility] Body weight 2021-01-07 19:38:00 63.504 kg Universi ty of [place] [facility] Oxygen saturation in 2021-01-07 19:38:00 100 /min University of Arterial blood by [facility] Pulse oximetry Branch Body weight 2020-08-30 15:09:00 48.081 kg Universi ty of [place] [facility] Systolic blood 2020-08-30 14:33:00 118 mm[Hg] Univer sity of pressure [place] [facility] Diastolic blood 2020-08-30 14:33:00 74 mm[Hg] Unive rsity of pressure [place] [facility] Heart rate 2020-08-30 14:33:00 89 /min Universi ty of [place] [facility] Body temperature 2020-08-30 14:33:00 37.33 Tiffanie Univ ersity of [place] [facility] Respiratory rate 2020-08-30 14:33:00 18 /min Univ ersity of [place] [facility] Oxygen saturation in 2020-08-30 14:33:00 97 /min University of Arterial blood by [facility] ivon Pulse oximetry Branch Body weight 2020-08-30 15:09:00 48.081 kg Universi ty of [place] [facility] Systolic blood 2020-08-30 14:33:00 118 mm[Hg] Univer sity of pressure [place] [facility] Diastolic blood 2020-08-30 14:33:00 74 mm[Hg] Unive rsity of pressure [place] [facility] Heart rate 2020-08-30 14:33:00 89 /min Universi ty of [place] [facility] Body temperature 2020-08-30 14:33:00 37.33 Tiffanie Univ ersity of [place] [facility] Respiratory rate 2020-08-30 14:33:00 18 /min Univ [facility] Oxygen saturation in 2020-08-30 14:33:00 97 /min [facility] Arterial blood by [facility] Pulse oximetry Branch Procedures Procedure Date / Time Performed Performing Clinician Jana burton POCT TEST 2021-01-07 19:45:00 [facility] URINALYSIS 2021-01-07 19:44:00 Rajendra Burton [place] o f [facility] CONSENT/REFUSAL FOR 2021-01-07 19:30:54 Doctor Unassigned, No Un iversity of [place] DIAGNOSIS AND Name Medical Branch TREATMENT CONSENT/REFUSAL FOR 2020-08-30 14:14:46 Doctor Unassigned, No Un iversity of [place] DIAGNOSIS AND Name Medical [place] TREATMENT Encounters Start End Encounter Admission Attending Care Care Encounter Source Date/Time Date/Time Type Type Clinicians Facility Department ID 2021-05-05 Emergency [facility] [id number] Univers 06:20:[address] [facility] 2021-05-04 Emergency [facility] [id number] Univers 01:34:[address] [facility] 2021-01-07 2021-01-07 Emergency [facility] [id number] Univers 14:45:00 16:53:00 Sarah Thao [id number] i ty of [place] [id number] [facility] [id number] [place] [id number] Branch 2020-08-30 2020-08-30 Emergency [facility] [id number] Univers 08:35:00 10:12:00 Ca Thao [id number] i ty of [place] [id number] [facility] [id number] [place] [id number] Branch 2020-08-30 2020-08-30 Emergency [facility] [id number] 08:35:00 10:12:00 [place] [id number] [place] [id number] [place] [address] [id number] 2019-09-28 2019-09-28 [facility] [id number] 14:22:00 14:22:00 [facility] ent [facility] 2019-09-18 2019-09-18 Outpatient [facility] [id number] 15:10:00 15:10:00 [facility] ent [facility] 2019-09-18 2019-09-18 Outpatient [facility] [id number] 08:15:00 08:15:00 [facility] ent [facility] 2019-07-20 2019-07-20 [facility] [id number] 11:30:00 11:30:00 [facility] ent [facility] 2018-11-28 2018-11-28 Inpatient E [facility] [id number] [facility] 14:36:00 11:54:00 2018-11-28 2018-11-28 Outpatient [facility] [id number] [facility] 11:54:00 11:54:00 Results Test Description Test Time Test Comments Results Result Comments Source URINALYSIS 2021-01-07 20:39:27 Test Item Value Reference Range Interpretation Comme nts APPEARANCE (test code = Clear Clear 0895846245) COLOR (test code = 2536021835) Straw Yellow A PH (test code = 7684819719) 4.8-8.0 SP GRAVITY (test code = 1.003-1.030 5117747744) GLU U QUAL (test code = Normal Normal 5537447456) BLOOD (test code = 8935982830) Negative Negative KETONES (test code = 3341295858) 20 mg/dL Negative A PROTEIN (test code = 2887-8) Negative Negative UROBILIN (test code = 7305819715) Normal Normal BILIRUBIN (test code = Negative Negative 0749309091) NITRITE (test code = 8800228445) Negative Negative LEUK SERENA (test code = Negative Negative 3186189088) RBC/HPF (test code = 3300025522) <1 See_Comment [Automated message] The system which ge nerated this result transmit kendrick reference range: 0 - 3 HP F. The reference range was not used to interpret th is result as normal/abnormal . WBC/HPF (test code = 9689451883) See_Comment [Automated message] The system which ge nerated this result transmit kendrick reference range: 0 - 5 HP F. The reference range was not used to interpret th is result as normal/abnormal . BACTERIA (test code = 9826900617) Negative Negative SQ EPITH (test code = 9904732057) <1 HPF Lab Interpretation (test code = Abnormal 03130-5) [id number] Test Item Value Reference Range Interpretation Comments POCT PREG (test code = 1605) negative On board controls acceptable with present C Line (test code = 3574) POCT PREG LOT # (test code = 3575) [id number] POCT PREG TEST DATE (test code = 3576) Lab Interpretation (test code = Normal 92753-7) [facility]
[2021-05-26 22:16] LABS: Urine Blood Negative (Negative); Urine Glucose Negative (Negative); Urine Protein 1+ (Negative); Urine Specific Gravity >=1.030 (1.005-1.030)
[2021-05-26] MEDS ORDERED: NA CHLORIDE 0.9% 1,000 ML ONE (22:35)
[2021-05-26] MEDS ORDERED: PANTOPRAZOLE 40 MG INJ ONE (22:35)
[2021-05-26] MEDS ORDERED: ONDANSETRON 4 MG/2 ML VIAL ONE (22:35)
[2021-05-26 22:48] LABS: Absolute Lymphocytes (CBC) 3.1 K/uL (0.7-4.9); Basophils % 0.5 % (0-1.3); MPV 8.5 fL (7.6-11.3)
[2021-05-26 22:53] LABS: Lymphocytes % 24.7 % (15.3-44.8)
[2021-05-26] MEDS ORDERED: MORPHINE 2 MG/ML SYR ONE (22:58)
[2021-05-26 23:02] LABS: ALT/SGPT 24 U/L (12-78); AST/SGOT 14 U/L (15-37); Albumin 4.6 g/dL (3.4-5.0); Alkaline Phosphatase 99 U/L (45-117); BUN Blood Urea Nitrogen 9 mg/dL (7-18); Bicarbonate 23 mmol/L (21-32); Bilirubin Direct 0.1 mg/dL (0-0.2); Bilirubin Total 0.9 mg/dL (0.2-1.0); Glucose Level 99 mg/dL (74-106); Lipase 57 U/L (73-393); Potassium 3.9 mmol/L (3.5-5.1); Protein, Total 8.8 g/dL (6.4-8.2); Sodium Level 138 mmol/L (136-145)
--- NOTE | 2021-05-26 23:34 | ER ---
Nurse's Notes [facility] Name: Cruzito Eastman Age: 21 yrs Sex: Female : 2000 Arrival Date: 05/26/2021 Time: 21:01 Bed 14 Private MD: Diagnosis: Vomiting;Functional dyspepsia Presentation: 05/26 21:26 Chief complaint: Patient states: I have been having severe abdominal pain beginning ld1 this morning. Pt reports N/V every morning and every evening. Coronavirus screen: At this time, the client does not indicate any symptoms associated with coronavirus-19. Ebola Screen: No symptoms or risks identified at this time. Initial Sepsis Screen: Does the patient meet any 2 criteria? No. Patient's initial sepsis screen is negative. Does the patient have a suspected source of infection? No. Patient's initial sepsis screen is negative. Risk Assessment: Do you want to hurt yourself or someone else? Patient reports no desire to harm self or others. Onset of symptoms was May 26, 2021. 21:26 Method Of Arrival: Ambulatory ld1 21:26 Acuity: DONI 3 ld1 Triage Assessment: 21:27 General: Appears in no apparent distress. comfortable, Behavior is cooperative, ld1 appropriate for age, anxious. Pain: Complains of pain in abdomen Pain radiates to right upper quadrant and left upper quadrant Pain currently is 8 out of 10 on a pain scale. Quality of pain is described as Pain began suddenly, Is continuous. EENT: No signs and/or symptoms were reported regarding the EENT system. Neuro: Level of Consciousness is awake, alert, obeys commands, Oriented to person, place, time, situation. Cardiovascular: Capillary refill < 3 seconds Patient's skin is warm and dry. Respiratory: Airway is patent Respiratory effort is even, unlabored, Respiratory pattern is regular, symmetrical. GI: Abdomen is flat, non-distended, Reports lower abdominal pain, upper abdominal pain, nausea. : No signs and/or symptoms were reported regarding the genitourinary system. Derm: No signs and/or symptoms reported regarding the dermatologic system. Musculoskeletal: No signs and/or symptoms reported regarding the musculoskeletal system. 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 - Social history:: Smoking status: Patient denies any tobacco usage or history of. Patient/guardian denies using alcohol, street drugs. - Family history:: not pertinent. Screenin:14 Abuse screen: Denies threats or abuse. Denies injuries from another. Nutritional kc4 screening: On no prescribed diet Difficulty chewing/swallowing? No Has had N/V for 3 or more days. Tuberculosis screening: No symptoms or risk factors identified. Never had TB. Possible symptoms: None Risk factors: None. Fall Risk None identified. No fall in past 12 months (0 pts). No secondary diagnosis (0 pts). IV access (20 points). Ambulatory Aid- None/Bed Rest/Nurse Assist (0 pts). Gait- Normal/Bed Rest/Wheelchair (0 pts) Mental Status- Oriented to own ability (0 pts). Total Green Fall Scale indicates No Risk (0-24 pts). Assessment: 23:18 General: Appears in no apparent distress. slender, well groomed, Behavior is calm, kc4 cooperative, appropriate for age. GI: Abdomen is flat, Bowel sounds present X 4 quads. Abd is soft and non tender X 4 quads. Reports lower abdominal pain, upper abdominal pain, nausea, vomiting. : No deficits noted. No signs and/or symptoms were reported regarding the genitourinary system. EENT: No deficits noted. No signs and/or symptoms were reported regarding the EENT system. Derm: No deficits noted. No signs and/or symptoms reported regarding the dermatologic system. Musculoskeletal: No deficits noted. No signs and/or symptoms reported regarding the musculoskeletal system. Vital Signs: 21:26 BP 122 / 86; Pulse 126; Resp 20; Temp 98.7(TE); Pulse Ox 100% on R/A; Weight 58.97 kg; ld1 Height 5 ft. 3 in. (160.02 cm); Pain 8/10; 23:14 BP 136 / 80; Pulse 80; Resp 18; Temp 98.6(O); Pulse Ox 100% on R/A; Pain 8/10; kc4 05/27 00:38 BP 120 / 76; Pulse 72; Resp 18; Temp 98.6(O); Pulse Ox 100% on R/A; Pain 0/10; kc4 05/26 21:26 Body Mass Index 23.03 (58.97 kg, 160.02 cm) ld1 Reyes Coma Score: 05/26 23:14 Eye Response: spontaneous(4). Verbal Response: oriented(5). Motor Response: obeys kc4 commands(6). Total: 15. ED Course: 21:01 Patient arrived in ED. ja2 21:27 Triage completed. ld1 21:27 Arm band placed on left wrist. ld1 22:07 Matthew Klein MD is Attending Physician. juan 22:19 Urine Microscopic Only Sent. ld1 22:20 Inserted saline lock: 20 gauge in right antecubital area, using aseptic technique. ds4 Blood collected. 22:31 Sophie Quick is Primary Nurse. kc4 23:11 Urine --Ancillary Sent. kc4 23:11 Urine --Ancillary (enter results) Sent. kc4 23:11 Urine Microscopic Only Sent. kc4 23:14 No apparent distress. kc4 23:14 Patient has correct armband on for positive identification. Placed in gown. Bed in low kc4 position. Call light in reach. Side rails up X 1. central aisle cashier on. Pulse ox on. NIBP on. 23:14 No provider procedures requiring assistance completed. kc4 23:33 Kristian Quintero MD is Referral Physician. [facility] 05/27 00:38 IV discontinued, intact, bleeding controlled, No redness/swelling at site. Pressure kc4 dressing applied. Administered Medications: 05/26 23:08 Drug: Zofran (Ondansetron) 4 mg Route: IVP; Site: right antecubital; kc4 23:08 Drug: morphine 2 mg Route: IVP; Site: right antecubital; kc4 23:09 Drug: NS 0.9% 1000 ml Route: IV; Rate: 1 bolus; Site: right antecubital; kc4 23:09 Drug: NS 0.9% 1000 ml Route: IV; Rate: 1 bolus; Site: right antecubital; kc4 23:09 Drug: ProTONIX (pantoprazole) 40 mg Route: IVP; Site: right antecubital; kc4 Outcome: 23:33 Discharge ordered by MD. martinez 05/27 00:38 Discharged to home ambulatory. kc4 Condition: improved Discharge instructions given to patient, Instructed on discharge instructions, follow up and referral plans. Demonstrated understanding of instructions, follow-up care, medications. 00:41 Patient left the ED. kc4 Signatures: Matthew Klein MD MD cha Swanson, Donovan ds4 Sujata Thomas, NEIL RN tessa1 Sophie Quick kc4 Stacey Crane
--- NOTE | 2021-05-26 23:34 | EDPHYS ---
Physician Documentation [facility] Name: Cruzito Eastman Age: 21 yrs Sex: Female : 2000 Arrival Date: 05/26/2021 Time: 21:01 Bed 14 Private MD: ED Physician Matthew Klein HPI: 05/26 22:29 This 21 yrs old Female presents to ER via Ambulatory with complaints of juan Nausea/Vomiting, Abdominal Pain. 22:29 The patient presents to the emergency department with nausea, vomiting, diarrhea, juan abdominal pain, described as crampy. Onset: The symptoms/episode began/occurred 60 day(s) ago. Possible causes: unknown. The symptoms are aggravated by pressure, food , The symptoms are alleviated by nothing. remaining still. Associated signs and symptoms: The patient has no apparent associated signs or symptoms. Severity of symptoms: At their worst the symptoms were mild in the emergency department the symptoms are unchanged. The patient has experienced similar episodes in the past, multiple times. 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 - Social history:: Smoking status: Patient denies any tobacco usage or history of. Patient/guardian denies using alcohol, street drugs. - Family history:: not pertinent. ROS: 22:29 Constitutional: Negative for fever, chills, and weight loss, Eyes: Negative for injury, juan pain, redness, and discharge, ENT: Negative for injury, pain, and discharge, Neck: Negative for injury, pain, and swelling, Cardiovascular: Negative for chest pain, palpitations, and edema, Respiratory: Negative for shortness of breath, cough, wheezing, and pleuritic chest pain, Back: Negative for injury and pain, : Negative for injury, bleeding, discharge, and swelling, MS/Extremity: Negative for injury and deformity, Skin: Negative for injury, rash, and discoloration, Neuro: Negative for headache, weakness, numbness, tingling, and seizure, Psych: Negative for depression, anxiety, suicide ideation, homicidal ideation, and hallucinations, Allergy/Immunology: Negative for hives, rash, and allergies, Endocrine: Negative for neck swelling, polydipsia, polyuria, polyphagia, and marked weight changes, Hematologic/Lymphatic: Negative for swollen nodes, abnormal bleeding, and unusual bruising. 22:29 Abdomen/GI: Positive for abdominal pain, nausea and vomiting, of the right upper quadrant and left upper quadrant. Exam: 22:29 Constitutional: This is a well developed, well nourished patient who is awake, alert, juan and in no acute distress. Head/Face: Normocephalic, atraumatic. Eyes: Pupils equal round and reactive to light, extra-ocular motions intact. Lids and lashes normal. Conjunctiva and sclera are non-icteric and not injected. Cornea within normal limits. Periorbital areas with no swelling, redness, or edema. ENT: Nares patent. No nasal discharge, no septal abnormalities noted. Tympanic membranes are normal and external auditory canals are clear. Oropharynx with no redness, swelling, or masses, exudates, or evidence of obstruction, uvula midline. Mucous membranes moist. Neck: Trachea midline, no thyromegaly or masses palpated, and no cervical lymphadenopathy. Supple, full range of motion without nuchal rigidity, or vertebral point tenderness. No Meningismus. Chest/axilla: Normal chest wall appearance and motion. Nontender with no deformity. No lesions are appreciated. Respiratory: Lungs have equal breath sounds bilaterally, clear to auscultation and percussion. No rales, rhonchi or wheezes noted. No increased work of breathing, no retractions or nasal flaring. Abdomen/GI: Soft, non-tender, with normal bowel sounds. No distension or tympany. No guarding or rebound. No evidence of tenderness throughout. Back: No spinal tenderness. No costovertebral tenderness. Full range of motion. Skin: Warm, dry with normal turgor. Normal color with no rashes, no lesions, and no evidence of cellulitis. MS/ Extremity: Pulses equal, no cyanosis. Neurovascular intact. Full, normal range of motion. Neuro: Awake and alert, GCS 15, oriented to person, place, time, and situation. Cranial nerves II-XII grossly intact. Motor strength 5/5 in all extremities. Sensory grossly intact. Cerebellar exam normal. Normal gait. 22:29 Cardiovascular: Rate: tachycardic, Rhythm: regular, Pulses: Pulses are 4+ in bilateral radial, brachial, femoral, popliteal, posterior tibial and and dorsalis pedis arteries.. Heart sounds: normal, normal S1and S2, no S3 or S4, no murmur, no rub, no gallop, Edema: is not appreciated, JVD: is not appreciated. Vital Signs: 21:26 BP 122 / 86; Pulse 126; Resp 20; Temp 98.7(TE); Pulse Ox 100% on R/A; Weight 58.97 kg; ld1 Height 5 ft. 3 in. (160.02 cm); Pain 8/10; 23:14 BP 136 / 80; Pulse 80; Resp 18; Temp 98.6(O); Pulse Ox 100% on R/A; Pain 8/10; kc4 05/27 00:38 BP 120 / 76; Pulse 72; Resp 18; Temp 98.6(O); Pulse Ox 100% on R/A; Pain 0/10; kc4 05/26 21:26 Body Mass Index 23.03 (58.97 kg, 160.02 cm) ld1 Reyes Coma Score: 05/26 23:14 Eye Response: spontaneous(4). Verbal Response: oriented(5). Motor Response: obeys kc4 commands(6). Total: 15. MDM: 22:07 Patient medically screened. juan 22:29 Differential diagnosis: Nonspecific abd pain, gastritis, viral gastroenteritis, juan gastroenteritis. Data reviewed: vital signs, nurses notes, lab test result(s), radiologic studies, CT scan. 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 Counseling: I had a detailed discussion with the patient and/or guardian regarding: the historical points, exam findings, and any diagnostic results supporting the discharge/admit diagnosis, lab results, radiology results, the need for outpatient follow up, for definitive care, a family practitioner, a raftsman. 05/26 21:24 Order name: Basic Metabolic Panel; Complete Time: 23:32 ld1 05/26 21:24 Order name: CBC with Diff; Complete Time: 23:32 ld1 05/26 21:24 Order name: Hepatic Function; Complete Time: 23:32 ld1 05/26 21:24 Order name: Lipase; Complete Time: 23:32 ld1 05/26 22:16 Order name: Urine Dipstick-Ancillary; Complete Time: 22:23 EDMS 05/26 21:24 Order name: IV Saline Lock; Complete Time: 22:23 ld1 05/26 22:18 Order name: Urine --Ancillary (enter results) cs9 05/26 22:19 Order name: Urine --Ancillary EDMS 05/26 21:24 Order name: Labs collected and sent; Complete Time: 22:23 ld1 05/26 22:18 Order name: Urine Dipstick-Ancillary (obtain specimen); Complete Time: 22:18 ld1 05/26 22:19 Order name: Urine Test (obtain specimen); Complete Time: 22:19 ld1 Administered Medications: 23:08 Drug: Zofran (Ondansetron) 4 mg Route: IVP; Site: right antecubital; kc4 23:08 Drug: morphine 2 mg Route: IVP; Site: right antecubital; kc4 23:09 Drug: NS 0.9% 1000 ml Route: IV; Rate: 1 bolus; Site: right antecubital; kc4 23:09 Drug: NS 0.9% 1000 ml Route: IV; Rate: 1 bolus; Site: right antecubital; kc4 23:09 Drug: ProTONIX (pantoprazole) 40 mg Route: IVP; Site: right antecubital; kc4 Disposition Summary: 05/26/21 23:33 Discharge Ordered Location: Home juan Problem: new juan Symptoms: have improved juan Condition: Stable juan Diagnosis - Vomiting juan - Functional dyspepsia juan Followup: juan - With: Private Physician - When: 2 - 3 days - Reason: Recheck today's complaints, Continuance of care, Re-evaluation by your physician Followup: juan - With: - When: 2 - 3 days - Reason: Recheck today's complaints, Re-evaluation by your physician Discharge Instructions: - Discharge Summary Sheet juan - Abdominal Pain, Adult juan - Abdominal Pain, Adult, [id number] juan - Indigestion, [id number] juan - Vomiting, Adult juan Forms: - Medication Reconciliation Form juan - Thank You Letter juan - Antibiotic Education juan - Prescription Opioid Use juan Prescriptions: - Protonix 40 mg Oral Tablet - take 1 tablet by ORAL route once daily; 30 tablet; Refills: 0, Product juan Selection Permitted - Zofran 4 mg Oral Tablet - take 1 tablet by ORAL route every 12 hours As needed; 20 tablet; Refills: 0, [facility] Product Selection Permitted - dicyclomine 20 mg Oral Tablet - take 2 tablets by ORAL route 4 times per day; 28 tablet; Refills: 0, Product juan Selection Permitted Signatures: Dispatcher [employer] Matthew Rhodes MD MD cha Dibbern, Lauren RN RN ld1 Sophie Quick 4
[2021-05-27 01:03] VITALS: O2SAT 100
[2021-05-27 01:04] VITALS: TEMP 98.6
[2021-05-27 01:06] VITALS: BP 120/76
== END 2021-05-27 00:41 | disposition home or self-care (01) ==
LOC: ER 20:55
DX: K30 Functional dyspepsia (principal)
CPT/HCPCS: 85025; 80048; 36415; 81025; 80076; 81003; 83690; 96375; 96374; 99284; C9113; J2270; J7030; J2405

== ENCOUNTER 2021-09-21 10:37 | Emergency (ER) | payer BC ==
--- OUTSIDE RECORDS SUMMARY | 2021-09-21 10:40 | XMS REPORT | Continuity of Care Document ---
:2000 Author Organization [facility] t Address [address] [place] [address] Care Team Providers Name Role Phone Bernadette Attending Clinician Unavailable Hudson Veliz Attending Clinician Merritt NELSON Attending Clinician Payers Payer Name Policy Type Policy Number Effective Date Expiration Date S ource [facility] [id number] 2014 00:00:00 [place] CHILDR[facility] [id number] 2017 HEALTH 00:00:00 Advance Directives Directive Decision Effective Termination Comments Source Date Date Healthcare Agents on N/A Univ ersity FileNameRelationshipHealthcare of [place] Agent Medical RelationshipCommunicationMonica Branch [facility] [phone] (Mobile) Fatoumata JaedparentFirst [facility] [phone] (Work) Problems Condition Condition Condition Status Onset Resolution Last Treating Co mments Source Name Details Category Date Date Treatment Clinician Date Encounter Encounter Disease Active Uni vers for for 8-11 ity of Depo-Prove [place] Medical contracept contracept Br anch ion ion Well woman Well woman Disease Active U nivers exam exam 8-10 ity of 00:00: [place] 00 Medical Branch Bipolar Bipolar Disease Active Univers disorder, disorder, ity of current current [place] episode episode Medical mixed, mixed, Branch mild [...] - ion ion [facility]oria initiation initiation l [facility] Depression Depression Problem [facility] Bipolar Bipolar Problem Active [facility] affective affective Luke [facility] - disorder, disorder, Jose cori remission remission l status status [facility] unspecifie unspecifie en t d d Clinics Anxiety Anxiety Problem [facility] Left eye Left eye Problem [facility]ics PTSD PTSD Problem Active [facility] (post-trau (post-trau Cecily kes - matic matic Memoria stress stress l disorder) disorder) Outp ati ent Clinics Facial Facial Problem Active [facility] weakness weakness [facility] Gastroesop Gastroesop Diagnosis Active [facility] hageal hageal [facility]ukes - reflux reflux Memoria disease, disease, l esophagiti esophagiti Ou tpati s presence s presence en t not not Clinics specified specified Nausea Nausea Problem Active [facility] without without [facility] - vomiting vomiting [facility]ori a l [facility] Blood in Blood in Problem Active [facility] stool [facility] Anal pain Anal pain Problem Active [facility] Epigastric Epigastric Diagnosis Active [facility] pain pain [facility] Flatus Flatus Problem Active [facility] Allergies, Adverse Reactions, Alerts Allergy Allergy Status Severity Reaction(s) Onset Inactive Treating Comm ents Source Name Type Date Date Clinician NO KNOWN Drug Active Univers ALLERGIE Class ity of S [facility] Social History Social Habit Start Date Stop Date Quantity Comments Source Exposure to Unable to assess Univers ity of SARS-CoV-2 [facility] (event) Branch Tobacco use and 2021-01-07 2021-01-07 Never used Universit y of exposure 00:00:00 00:00:00 [facility] Alcohol intake 2021-01-07 2021-01-07 Current University of 00:00:00 00:00:00 non-drinker of [facility] alcohol Branch (finding) Sex Assigned At [birth year] Universit y of 00:00:00 00:00:00 [facility] Smoking Status Start Date Stop Date Source Never smoker [facility] Medications Ordered Filled Start Stop Current Ordering Indication Dosage Frequency Signature Comments Components Source Medication Medication Date Date Medication? Clinician (SIG) Name Name ondansetron 2020- No 4mg 4 mg, Univ ers (ZOFRAN-ODT 01-07 Oral, ity of ) 22:30: 21:27 ONCE, 1 [place] disintegrat 00 :00 dose, Tue Med ical ing tablet 01/07/21 at Bran ch 4 mg 1730, Routine MEDROXYPROG 2020- No by Unive rs ESTERONE 01-07 Intramuscu ity of ACETATE 21:17: 00:00 lar route. Chip as (DEPO-PROVE 23 :00 Medical RA IM) Branch ondansetron Yes [id number] 4mg Take 1 Univers (ZOFRAN 01-07 tablet by ity of ODT) 4 mg 00:00: mouth [place] disintegrat 00 every 8 Medic al ing tablet (eight) Branch hours as needed for Nausea and Vomiting (N/V). methocarbam 2020- No 500mg 500 mg, U nivers oL -30 08- Oral, ity of (ROBAXIN) 16:15: 15:20 ONCE, 1 [place] tablet 500 [place] :00 dose, Fri Medi ivon mg 08/30/20 at Branch 1015, Routine methocarbam Yes [id number] 750mg Take 1 Univers oL 750 mg - tablet by ity o f tablet 00:00: mouth 4 [place] 00 (four) Medical times Branch daily as needed for Pain (scale 7-10). methocarbam 2020- No [id number] 750mg Take 1 Univers oL 750 mg 2-26 - tablet by ity of tablet 00:00: 00:00 mouth 4 [place] 00 :00 (four) Medical times Branch daily as needed for Pain (scale 7-10). Omeprazole Omeprazole 2019- Yes Apurva [address] 3-16 [...] 02 Medical RA IM) Branch albuterol Yes [id number] 2{puff} Inhale 2 Univers 90 2-08 Puffs ity of mcg/actuati 00:00: every 4 Chip as on inhaler 00 (four) Medical hours as Branch needed for Wheezing or Shortness of Breath. promethazin Yes [id number] 5mL Take 5 mL Univers e-dextromet 2-08 by mouth 4 it y of horphan 00:00: (four) [place] 6.25-15 00 times Medical mg/5 mL daily as Branch syrup needed for Cough. fluticasone Yes [id number] 2{spray Use 2 Univers 50 2-08 } Sprays in ity of mcg/actuati 00:00: each [place] on nasal 00 nostril Medical spray daily. Branch albuterol Yes [id number] 2{puff} Inhale 2 Univers 90 2-08 Puffs ity of mcg/actuati 00:00: every 4 Chip as on inhaler 00 (four) Medical hours as Branch needed for Wheezing or Shortness of Breath. promethazin 2020- No [id number] 5mL Take 5 mL Univers e-dextromet 2-08 07-06 by mouth 4 i ty of horphan 00:00: 00:00 (four) [place] 6.25-15 00 :00 times Medical mg/5 mL daily as Branch syrup needed for Cough. fluticasone 2020- No [id number] 2{spray Use 2 Univers 50 2-08 07-06 } Sprays in ity of mcg/actuati 00:00: 00:00 each [place] on nasal 00 :00 nostril Medical spray daily. Branch traMADOL 50 2016-07 Yes 50mg Take 1 Univ ers mg tablet 1-18 tablet by ity o f 00:00: mouth [place] 00 every 6 Medical (six) Branch hours as needed for Pain (scale 7-10). traMADOL 50 2016-2020- No 50mg Take 1 Uni vers mg tablet 07-22 tablet by ity of 00:00: 00:00 mouth [place] 00 :00 every 6 Medical (six) Branch hours as needed for Pain (scale 7-10). Immunizations Ordered Filled Immunization Date Status Comments [facility] e Immunization Name Name DTAP 2001-06-22 Completed University of 00:00:00 [facility] HIB 4 Dose Schedule 2001-06-22 Completed Unive rsity of 00:00:00 [facility] MMR 2001-06-22 Completed University of 00:00:00 [facility] Varicella 2001-06-22 Completed University of (varivax)(chicken 00:00:00 [facility] edical pox) Branch DTAP 2001-06-22 Completed University of 00:00:00 [facility] HIB 4 Dose Schedule 2001-06-22 Completed Unive rsity of 00:00:00 [facility] MMR 2001-06-22 Completed University of 00:00:00 [facility] Varicella 2001-06-22 Completed University of (varivax)(chicken 00:00:00 [facility] edical pox) Branch Hep B, Adol or Pedi 2001-02-08 Completed Unive rsity of Dosage 00:00:00 [facility] Hep B, Adol or Pedi 2001-02-08 Completed Unive rsity of Dosage 00:00:00 [facility] Hep B, Adol or Pedi 2001-02-07 Completed Unive rsity of Dosage 00:00:00 [facility] Hep B, Adol or Pedi 2001-02-07 Completed Unive rsity of Dosage 00:00:00 [facility] DTAP 2000 Completed University of 00:00:00 [facility] HIB 4 Dose Schedule 2000 Completed Unive rsity of 00:00:00 [facility] Polio (IPV/OPV) 2000 Completed Universit y of 00:00:00 [facility] DTAP 2000 Completed University of 00:00:00 [facility] HIB 4 Dose Schedule 2000 Completed Unive rsity of 00:00:00 [facility] Pneumococcal 7 2000 Completed University of Conjugate, PCV7 00:00:00 [place] Med ical (Prevnar7) Branch Polio (IPV/OPV) 2000 Completed Universit y of 00:00:00 [facility] DTAP 2000 Completed University of 00:00:00 [facility] HIB 4 Dose Schedule 2000 Completed Unive rsity of 00:00:00 [facility] Polio (IPV/OPV) 2000 Completed Universit y of 00:00:00 [facility] DTAP 2000 Completed University of 00:00:00 [facility] HIB 4 Dose Schedule 2000 Completed Unive rsity of 00:00:00 [facility] Pneumococcal 7 2000 Completed University of Conjugate, PCV7 00:00:00 [facility] ical (Prevnar7) Branch Polio (IPV/OPV) 2000 Completed Universit y of 00:00:00 [facility] DTAP 2000 Completed University of 00:00:00 [facility] HIB 4 Dose Schedule 2000 Completed Unive rsity of 00:00:00 [facility] Polio (IPV/OPV) 2000 Completed Universit y of 00:00:00 [facility] DTAP 2000 Completed University of 00:00:00 [facility] HIB 4 Dose Schedule 2000 Completed Unive rsity of 00:00:00 [facility] Polio (IPV/OPV) 2000 Completed Universit y of 00:00:00 [facility] DTAP 2000 Completed University of 00:00:00 [facility] Hep B, Adol or Pedi 2000 Completed Unive rsity of Dosage 00:00:00 [facility] HIB 4 Dose Schedule 2000 Completed Unive rsity of 00:00:00 [facility] Polio (IPV/OPV) 2000 Completed Universit y of 00:00:00 [facility] DTAP 2000 Completed University of 00:00:00 [facility] Hep B, Adol or Pedi 2000 Completed Unive rsity of Dosage 00:00:00 [facility] HIB 4 Dose Schedule 2000 Completed Unive rsity of 00:00:00 [facility] Polio (IPV/OPV) 2000 Completed Universit y of 00:00:00 [place] [facility] Vital Signs Vital Name Observation Time Observation Value Comments Source Systolic blood 2021-01-07 19:38:00 132 mm[Hg] Univer sity of pressure [place] [facility] Diastolic blood 2021-01-07 19:38:00 97 mm[Hg] Unive rsity of pressure [place] [facility] Heart rate 2021-01-07 19:38:00 87 /min Universi ty of [place] [facility] Body temperature 2021-01-07 19:38:00 36.44 Tiffanie Univ ersity of [place] [facility] Respiratory rate 2021-01-07 19:38:00 18 /min Univ ersity of [place] [facility] Body weight 2021-01-07 19:38:00 63.504 kg Universi ty of [place] [facility] Oxygen saturation in 2021-01-07 19:38:00 100 /min University of Arterial blood by [facility] Pulse oximetry Branch Body weight 2020-08-30 15:09:00 48.081 kg Universi ty of [place] [facility] Systolic blood 2020-08-30 14:33:00 118 mm[Hg] Univer sity of pressure [place] [facility] Diastolic blood 2020-08-30 14:33:00 74 mm[Hg] Unive rsity of pressure [place] [facility] Heart rate 2020-08-30 14:33:00 89 /min Universi ty of [place] [facility] Body temperature 2020-08-30 14:33:00 37.33 Tiffanie Univ ersity of [place] [facility] Respiratory rate 2020-08-30 14:33:00 18 /min Univ ersity of [place] [facility] Oxygen saturation in 2020-08-30 14:33:00 97 /min University of Arterial blood by [facility] Pulse oximetry Branch Body weight 2020-08-30 15:09:00 48.081 kg Universi ty of [place] [facility] Systolic blood 2020-08-30 14:33:00 118 mm[Hg] Univer sity of pressure [place] [facility] Diastolic blood 2020-08-30 14:33:00 74 mm[Hg] Unive rsity of pressure [place] [facility] Heart rate 2020-08-30 14:33:00 89 /min Universi ty [facility] [place] [facility] Body temperature 2020-08-30 14:33:00 37.33 Tiffanie Univ ersity of [facility] Respiratory rate 2020-08-30 14:33:00 18 /min [facility] Oxygen saturation in 2020-08-30 14:33:00 97 /min [facility] Arterial blood by [facility] Pulse oximetry Branch Procedures Procedure Date / Time Performed Performing Clinician Sourc e POCT TEST 2021-01-07 19:45:00 Rajendra Burton [facility] of [facility] URINALYSIS 2021-01-07 19:44:00 Rajendra Burton [place] o f [facility] CONSENT/REFUSAL FOR 2021-01-07 19:30:54 Doctor Unassigned, No Un iversity of [place] DIAGNOSIS AND Name Medical [place] TREATMENT CONSENT/REFUSAL FOR 2020-08-30 14:14:46 Doctor Unassigned, No Un [facility] [place] DIAGNOSIS AND Name [facility] Branch TREATMENT Encounters Start End Encounter Admission Attending Care Care Encounter Source Date/Time Date/Time Type Type Clinicians Facility Department ID 2021-07-30 Outpatient Bernadette, [facility] [id number] [facility] 11:01:07 [place]ur[place] [id number] Latha Mary Kate rodriguez Outpati ent Clinics 2021-05-05 Emergency [facility] [id number] Univers 06:20:30 ity of [facility] 2021-05-04 Emergency [facility] [id number] Univers 01:34:09 ity of [facility] 2021-01-07 2021-01-07 [facility] [id number] Univers 14:45:00 16:53:00 Sarah Thao [id number] i ty of [place] [id number] [facility] [id number] [facility] 084 Branch 2020-08-30 2020-08-30 [facility] [id number] 08:35:00 10:12:00 Ca Thao [id number] [place] [id number] [place] [address] [id number] 2020-08-30 2020-08-30 [facility] [id number] Univers 08:35:00 10:12:00 [place] [id number] i Shirin [id number] [facility] [id number] [facility] 084 Branch 2019-09-28 2019-09-28 [facility] [id number] [facility] 14:22:00 14:22:00 [facility] 2019-09-18 2019-09-18 [facility] [id number] [facility] 15:10:00 15:10:00 [facility] 2019-09-18 2019-09-18 [facility] [id number] 08:15:00 08:15:00 [facility] 2019-07-20 2019-07-20 [facility] [id number] [facility] 11:30:00 11:30:00 [facility] 2018-11-28 2018-11-28 Inpatient E [facility] [id number] [facility] 14:36:00 11:54:00 2018-11-28 2018-11-28 Outpatient [facility] [id number] [facility] 11:54:00 11:54:00 Results Test Description Test Time Test Comments Results Result Comments Source URINALYSIS 2021-01-07 20:39:27 Test Item Value Reference Range Interpretation Comme nts APPEARANCE (test code = Clear Clear 9446269974) COLOR (test code = 0347995713) Straw Yellow A PH (test code = 8726380110) 4.8-8.0 SP GRAVITY (test code = 1.003-1.030 2715590053) GLU U QUAL (test code = Normal Normal 3281086564) BLOOD (test code = 1332787877) Negative Negative KETONES (test code = 1045836265) 20 mg/dL Negative A PROTEIN (test code = 2887-8) Negative Negative UROBILIN (test code = 4069129032) Normal Normal BILIRUBIN (test code = Negative Negative 8566505931) NITRITE (test code = 5480156995) Negative Negative LEUK SERENA (test code = Negative Negative 7506473613) RBC/HPF (test code = 8706313407) <1 See_Comment [Automated message] The system which ge nerated this result transmit kendrick reference range: 0 - 3 HP F. The reference range was not used to interpret th is result as normal/abnormal . WBC/HPF (test code = 6253628929) See_Comment [Automated message] The system which ge nerated this result transmit kendrick reference range: 0 - 5 HP F. The reference range was not used to interpret th is result as normal/abnormal . BACTERIA (test code = 6856343119) Negative Negative SQ EPITH (test code = 0450124630) <1 HPF Lab Interpretation (test code = Abnormal 48007-6) [id number] 19:45:00 Test Item Value Reference Range Interpretation Comments POCT PREG (test code = 1605) negative On board controls acceptable with present C Line (test code = 3574) POCT PREG LOT # (test code = 3575) [id number] POCT PREG TEST DATE (test code = 3576) Lab Interpretation (test code = Normal 63720-8) [facility]
[2021-09-21 11:06] LABS: Absolute Lymphocytes (CBC) 1.5 K/uL (0.7-4.9); Hematocrit 43.3 % (36.0-45.0); MPV 8.5 fL (7.6-11.3); RBC Red Blood Cell Count 4.99 M/uL (3.86-4.86)
[2021-09-21 11:13] LABS: Urine Blood Negative (Negative); Urine Glucose Negative (Negative); Urine Protein Negative (Negative); Urine Specific Gravity >=1.030 (1.005-1.030)
[2021-09-21 11:20] LABS: Urine Specific Gravity/Preg >1.030 (1.005-1.030)
[2021-09-21] MEDS ORDERED: ONDANSETRON 4 MG/2 ML VIAL ONE (11:23)
[2021-09-21] MEDS ORDERED: NA CHLORIDE 0.9% 1,000 ML ONE (11:23)
[2021-09-21 11:27] LABS: ALT/SGPT 20 U/L (12-78); AST/SGOT 17 U/L (15-37); Albumin 4.7 g/dL (3.4-5.0); Alkaline Phosphatase 97 U/L (45-117); BUN Blood Urea Nitrogen 9 mg/dL (7-18); Bicarbonate 25 mmol/L (21-32); Bilirubin Total 1.3 mg/dL (0.2-1.0); Glucose Level 89 mg/dL (74-106); Lipase 60 U/L (73-393); Protein, Total 8.5 g/dL (6.4-8.2); Sodium Level 137 mmol/L (136-145)
--- NOTE | 2021-09-21 11:50 | RAD REPORT ---
EXAM DESCRIPTION: CT - Abdomen Pelvis W Contrast - 09/21/2021 11:24 am CLINICAL HISTORY: ABD PAIN, recurrent vomiting, unintentional 40 pound weight loss COMPARISON: <Comparisons> TECHNIQUE: Biphasic, helical CT imaging of the abdomen and pelvis was performed following 100 ml non -ionic IV contrast. No oral contrast administered. All CT scans are performed using dose optimization technique as appropriate and may include automated exposure control or mA/KV adjustment according to patient size. FINDINGS: No suspicious findings in the lung bases. The liver, spleen, and pancreas show no suspicious findings. Gallbladder and biliary tree are also wi thout suspicious finding. Symmetric renal function is seen with no hydronephrosis or suspicious renal mass. No pyelonephritis o r acute parenchymal process. No bladder abnormalities. No adrenal abnormalities. Uterus is retroflexe d and possibly retroverted. No uterine abnormality evident. No suspicious ovarian finding. Normal siz ed follicles are evident. No fallopian tube dilatation is seen. There is a 2.5 centimeter oval cystic structure posterior right adnexa appearing to be discrete from the right ovary. This is possibly a p araovarian cyst or possibly enteric cyst. No change from the prior study and this is not regarded as significant. No dilated bowel loops or bowel wall thickening. No appendicitis finding. No acute or active GI proce ss identifiable. No free air or pneumatosis. Trace amount of free fluid in the cul de sac is well wit hin physiologic limits. No hernia, mass or bulky lymphadenopathy. No suspicious bony findings. Left convex scoliotic curvature is present in the spine. IMPRESSION: Contrast enhanced CT abdomen and pelvis showing no acute, emergent or suspicious finding . No significant change from the 11/21/2020 comparison study.
--- NOTE | 2021-09-21 12:27 | ER ---
Nurse's Notes [facility] Name: Cruzito Eastman Age: 21 yrs Sex: Female : 2000 Arrival Date: 09/21/2021 Time: 10:39 Bed 12 Private MD: Milagros Curiel K Diagnosis: Abdominal pain, Generalized;Nausea with vomiting, unspecified Presentation: 09/21 10:46 Chief complaint: Patient states: Started vomiting 2 days ago. Nausea is waking her up ww at night and not able to sleep. Coronavirus screen: Client denies travel out of the [place] in the last 14 days. Ebola Screen: Patient denies travel to an Ebola-affected area in the 21 days before illness onset. Initial Sepsis Screen: Does the patient meet any 2 criteria? No. Patient's initial sepsis screen is negative. Does the patient have a suspected source of infection? No. Patient's initial sepsis screen is negative. Risk Assessment: Do you want to hurt yourself or someone else? Patient reports no desire to harm self or others. Onset of symptoms is unknown. 10:46 Method Of Arrival: Ambulatory ww 10:46 Acuity: DONI 3 ww Triage Assessment: 10:48 General: Appears slender, Behavior is calm, cooperative. Pain: Complains of pain in ww suprapubic area, right lower quadrant and left lower quadrant. Neuro: Level of Consciousness is awake, alert, obeys commands, Oriented to person, place, time, situation, Moves all extremities. Speech is normal. Cardiovascular: Patient's skin is warm and dry. Respiratory: Airway is patent Respiratory effort is even, unlabored, Respiratory pattern is regular, symmetrical. GI: Reports lower abdominal pain, upper abdominal pain, constipation, intolerance of fluids, intolerance of food, nausea, vomiting. : Reports urinary frequency. Derm: Skin is healthy with good turgor. 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 - Social history:: Smoking status: Patient denies any tobacco usage or history of. Screenin:52 Abuse screen: Denies threats or abuse. Denies injuries from another. Tuberculosis ww screening: No symptoms or risk factors identified. Fall Risk None identified. 12:35 Nutritional screening: Has had N/V for 3 or more days. ww Assessment: 11:30 Reassessment: Patient appears in no apparent distress at this time. No changes from ww previously documented assessment. Patient and/or family updated on plan of care and expected duration. Pain level reassessed. Patient is alert, oriented x 3, equal unlabored respirations, skin warm/dry/pink. Patient states feeling better. see triage assessment. 12:23 Reassessment: Patient appears in no apparent distress at this time. No changes from ww previously documented assessment. Patient and/or family updated on plan of care and expected duration. Pain level reassessed. Patient is alert, oriented x 3, equal unlabored respirations, skin warm/dry/pink. Vital Signs: 10:46 BP 144 / 98; Pulse 108; Resp 20; Temp 99.0; Pulse Ox 100% ; Height 5 ft. 2 in. (157.48 ww cm); Pain 9/10; 12:35 BP 125 / 76; Pulse 95; Resp 18; ww ED Course: 10:39 Patient arrived in ED. as 10:39 Milagros Curiel MD is Private Physician. as 10:42 Hien Mar FNP-C is [facility]. kb 10:42 Coy Choi MD is Attending Physician. kb 10:48 Triage completed. ww 10:48 Arm band placed on left wrist. ww 11:00 Patient has correct armband on for positive identification. Bed in low position. Call ww light in reach. Side rails up X 1. 11:00 Inserted saline lock: 20 gauge in right antecubital area, using aseptic technique. ww Blood collected. 11:18 CBC with Diff Sent. ww 11:18 CMP Sent. ww 11:24 CT Abd/Pelvis - IV Contrast Only In Process Unspecified. EDMS 12:35 No provider procedures requiring assistance completed. bleeding controlled, No ww redness/swelling at site. Pressure dressing applied. Administered Medications: 11:35 Drug: NS 0.9% 1000 ml Route: IV; Rate: 1 bolus; Site: right antecubital; ww 11:35 Drug: Zofran (Ondansetron) 4 mg Route: IVP; Infused Over: 2 mins; Site: right ww antecubital; Outcome: 12:26 Discharge ordered by MD. [place] 12:35 Discharged to home ambulatory, with family. ww 12:35 Condition: stable 12:35 Discharge instructions given to patient, family, Instructed on discharge instructions, follow up and referral plans. medication usage, safety practices, Demonstrated understanding of instructions, follow-up care, medications, Prescriptions given X 2. 12:36 Patient left the ED. ww Signatures: Dispatcher [employer] EDHien Ramirez, LICENSE ISSUER-C LICENSE ISSUER-Carmen Larose Whitney, RN RN ww
--- NOTE | 2021-09-21 12:27 | EDPHYS ---
Physician Documentation [facility] Name: Cruzito Eastman Age: 21 yrs Sex: Female : 2000 Arrival Date: 09/21/2021 Time: 10:39 Bed 12 Private MD: Milagros Curiel K ED Physician Coy Choi HPI: 09/21 11:59 This 21 yrs old Female presents to ER via Ambulatory with complaints of kb Abdominal Pain, Vomiting. 11:59 The patient presents with abdominal pain that is diffuse. Onset: The symptoms/episode kb began/occurred 2 day(s) ago. The patient has not experienced similar symptoms in the past. 12:00 The symptoms do not radiate. Associated signs and symptoms: Pertinent positives: kb nausea, vomiting, Pertinent negatives: diarrhea, fever. The symptoms are described as constant. Modifying factors: The symptoms are alleviated by nothing, the symptoms are aggravated by nothing. Severity of pain: At its worst the pain was moderate in the emergency department the pain is unchanged. The patient has not recently seen a physician. Pt reports abd pain, nausea and vomiting that started 2 days ago. Unable to tolerate anything by mouth. 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 - Social history:: Smoking status: Patient denies any tobacco usage or history of. ROS: 11:58 Constitutional: Negative for fever, chills, and weight loss. kb 11:58 Abdomen/GI: Positive for abdominal pain, nausea and vomiting, Negative for diarrhea. 11:58 All other systems are negative. Exam: 11:58 Constitutional: This is a well developed, well nourished patient who is awake, alert, kb and in no acute distress. Head/Face: Normocephalic, atraumatic. ENT: Moist Mucous membranes Respiratory: Respirations even and unlabored. No increased work of breathing. Talking in full sentences Skin: Warm, dry with normal turgor. Normal color. MS/ Extremity: Pulses equal, no cyanosis. Neurovascular intact. Full, normal range of motion. Neuro: Awake and alert, GCS 15, oriented to person, place, time, and situation. Moves all extremities. Normal gait. Psych: Awake, alert, with orientation to person, place and time. Behavior, mood, and affect are within normal limits. 11:58 Abdomen/GI: Inspection: abdomen appears normal, Bowel sounds: normal, Palpation: soft, in all quadrants, mild abdominal tenderness, in all quadrants. Vital Signs: 10:46 BP 144 / 98; Pulse 108; Resp 20; Temp 99.0; Pulse Ox 100% ; Height 5 ft. 2 in. (157.48 ww cm); Pain 9/10; 12:35 BP 125 / 76; Pulse 95; Resp 18; ww MDM: 10:48 Patient medically screened. kb 11:58 Data reviewed: vital signs, nurses notes. Data interpreted: Pulse oximetry: on room air kb is 100 %. Interpretation: normal. Counseling: I had a detailed discussion with the patient and/or guardian regarding: the historical points, exam findings, and any diagnostic results supporting the discharge/admit diagnosis, lab results, radiology results, the need for outpatient follow up, a family practitioner, to return to the emergency department if symptoms worsen or persist or if there are any questions or concerns that arise at home. 09/21 10:49 Order name: CBC with Diff kb 09/21 10:49 Order name: CMP kb 09/21 10:49 Order name: Lipase; Complete Time: 11:28 kb 09/21 10:49 Order name: CBC with Automated Diff; Complete Time: 11:18 EDMS 09/21 10:49 Order name: Comprehensive Metabolic Panel; Complete Time: 11:28 EDMS 09/21 11:13 Order name: Urine Dipstick-Ancillary; Complete Time: 11:18 EDMS 09/21 10:49 Order name: CT Abd/Pelvis - IV Contrast Only; Complete Time: 11:51 kb 09/21 10:49 Order name: IV Saline Lock; Complete Time: 11:18 kb 09/21 10:49 Order name: Labs collected and sent; Complete Time: 11:19 kb 09/21 10:49 Order name: Urine Dipstick-Ancillary (obtain specimen); Complete Time: 11:19 kb 09/21 10:49 Order name: Urine Test (obtain specimen); Complete Time: 11:19 kb 09/21 11:18 Order name: Test Urine - POC; Complete Time: 11:22 sp 09/21 11:53 Order name: PO challenge; Complete Time: 12:04 kb Administered Medications: 11:35 Drug: NS 0.9% 1000 ml Route: IV; Rate: 1 bolus; Site: right antecubital; ww 11:35 Drug: Zofran (Ondansetron) 4 mg Route: IVP; Infused Over: 2 mins; Site: right ww antecubital; Disposition: 16:38 Co-signature as Attending Physician, Coy Choi MD I agree with the assessment and kdr plan of care. Disposition Summary: 09/21/21 12:26 Discharge Ordered Location: Home kb Condition: Stable kb Diagnosis - Abdominal pain, Generalized kb - Nausea with vomiting, unspecified kb Followup: kb - With: Private Physician - When: 2 - 3 days - Reason: Recheck today's complaints, Continuance of care, Re-evaluation by your physician Followup: kb - With: Emergency Department - When: As needed - Reason: Worsening of condition Discharge Instructions: - Discharge Summary Sheet kb - Nausea and Vomiting, Adult, [id number] kb - Abdominal Pain, Adult, [id number] kb Forms: - Medication Reconciliation Form kb - Thank You Letter kb - Antibiotic Education kb - Prescription Opioid Use kb Prescriptions: - Zofran 4 mg Oral Tablet - take 1 tablet by ORAL route every 6 hours As needed; 20 tablet; Refills: 0, kb Product Selection Permitted - dicyclomine 20 mg Oral Tablet - take 1 tablet by ORAL route 4 times per day As needed; 20 tablet; Refills: 0, kb Product Selection Permitted Signatures: Dispatcher [employer] EDNV Hien Mar, ICU STAFF NURSE-C ICU STAFF NURSE-Coy Snow MD MD kdr Wood, Whitney, RN RN ww Corrections: (The following items were deleted from the chart) 12:00 11:58 Abdomen/GI: Inspection: abdomen appears normal, Bowel sounds: normal, Palpation: kb soft, in all quadrants, mild abdominal tenderness, in all quadrants, kb 12:02 11:58 Abdomen/GI: Positive for abdominal pain, nausea, vomiting, and diarrhea, kb kb
[2021-09-21 12:42] VITALS: TEMP 99; O2SAT 100
[2021-09-21 12:43] VITALS: BP 125/76
== END 2021-09-21 12:36 | disposition home or self-care (01) ==
LOC: ER 10:37
DX: R10.84 Generalized abdominal pain (principal); R11.2 Nausea with vomiting, unspecified; F31.9 Bipolar disorder, unspecified
CPT/HCPCS: 85025; 36415; 81025; 82565; 81003; 83690; 80053; 74177; 96374; 99284; Q9967; J7030; J2405

== ENCOUNTER 2021-11-25 09:20 | Emergency (ER) | payer BC ==
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
[2021-11-25] MEDS ORDERED: ONDANSETRON 4 MG/2 ML VIAL ONE (10:36)
[2021-11-25] MEDS ORDERED: NA CHLORIDE 0.9% 1,000 ML ONE (10:36)
[2021-11-25] MEDS ORDERED: FAMOTIDINE 20 MG/2 ML VIAL IV ONE (10:36)
[2021-11-25 10:50] LABS: Absolute Lymphocytes (CBC) 1.5 K/uL (0.7-4.9); Hematocrit 44.9 % (36.0-45.0); MPV 8.2 fL (7.6-11.3)
[2021-11-25 10:56] LABS: Urine Blood Negative (Negative); Urine Glucose Negative (Negative); Urine Protein Negative (Negative); Urine Specific Gravity 1.025 (1.005-1.030)
[2021-11-25 11:02] LABS: Albumin 4.4 g/dL (3.4-5.0); Bilirubin Total 1.1 mg/dL (0.2-1.0); Potassium 4.1 mmol/L (3.5-5.1); Protein, Total 8.1 g/dL (6.4-8.2)
[2021-11-25 11:17] LABS: Urine Bacteria 20-50 /HPF (<20); Urine RBC <5 /HPF (NONE SEEN)
[2021-11-25] MEDS ORDERED: CEFTRIAXONE 1000 MG/VIAL ONE (11:44)
[2021-11-25] MEDS ORDERED: NA CHLORIDE 0.9% 50 ML ONE (11:45)
--- NOTE | 2021-11-25 11:54 | ER ---
Nurse's Notes [facility] Name: Cruzito Eastman Age: 21 yrs Sex: Female : 2000 Arrival Date: 11/25/2021 Time: 09:21 Bed 11 Private MD: Milagros Curiel K Diagnosis: UTI/ Urinary tract infection, site not specified;Abdominal pain, Generalized Presentation: 11/25 09:27 Chief complaint: Patient states: "I've been having abdominal pain for a year and I've aa5 already been here a couple of times for this so I am gonna keep coming here until you guys find out what is wrong with me". Coronavirus screen: At this time, the client does not indicate any symptoms associated with coronavirus-19. Ebola Screen: No symptoms or risks identified at this time. Initial Sepsis Screen: Does the patient meet any 2 criteria? HR > 90 bpm. Does the patient have a suspected source of infection? No. Patient's initial sepsis screen is negative. Risk Assessment: Do you want to hurt yourself or someone else? Patient reports no desire to harm self or others. Onset of symptoms was November 2021. 09:27 Acuity: DONI 3 aa5 09:27 Method Of Arrival: Ambulatory aa5 Historical: - Allergies: 09:26 No Known Allergies; aa5 - PMHx: 09:26 Asthma; Bipolar disorder; PTSD; aa5 - Immunization history:: Adult Immunizations up to date. - Social history:: Smoking status: Patient reports the use of cigarette tobacco products, smokes one-half pack cigarettes per day. Screenin:50 Abuse screen: Denies threats or abuse. Denies injuries from another. Nutritional ss screening: No deficits noted. Tuberculosis screening: No symptoms or risk factors identified. Never had TB. Fall Risk None identified. Assessment: 11:50 Reassessment: Patient appears in no apparent distress at this time. Patient and/or ss family updated on plan of care and expected duration. Pain level reassessed. Patient is alert, oriented x 3, equal unlabored respirations, skin warm/dry/pink. Patient states feeling better. Patient states symptoms have improved. Neuro: Lo Agitation-Sedation Scale (RASS): 0 - Alert and Calm. Vital Signs: : BP 118 / 86; Pulse 114; Resp 18 S; Temp 98.5(O); Pulse Ox 100% on R/A; Weight 49.9 kg aa5 (R); Height 5 ft. 2 in. (157.48 cm) (R); 10:30 BP 144 / 59; Pulse 60; Resp 16; Temp 97.0; Pulse Ox 100% on R/A; kj1 09:27 Body Mass Index 20.12 (49.90 kg, 157.48 cm) aa5 ED Course: 09:21 Patient arrived in ED. am2 09:21 Milagros Curiel MD is Private Physician. am2 09:24 [facility] Basilio [facility] jh7 09:24 Magno Herbert MD is Attending Physician. jh7 09:26 Arm band placed on. aa5 09:28 Triage completed. aa5 10:30 Patient has correct armband on for positive identification. kj1 10:30 Initial lab(s) drawn, by nh, sent to lab. Inserted saline lock: 20 gauge in right kj1 antecubital area, using aseptic technique. Blood collected. 10:39 Carol Espinal, NEIL is Primary Nurse. ss 11:50 No provider procedures requiring assistance completed. ss 11:52 Milagros Curiel MD is Referral Physician. [facility] 12:27 IV discontinued, intact, bleeding controlled, No redness/swelling at site. Pressure ss dressing applied. Administered Medications: 10:39 Drug: NS 0.9% 1000 ml Route: IV; Rate: 1 bolus; Site: right antecubital; ss 11:30 Follow up: IV Status: Completed infusion; IV Intake: 1000ml ss 10:40 Drug: Pepcid (famotidine) 20 mg Route: IVP; Site: right antecubital; ss 11:49 Follow up: Response: No adverse reaction; Marked relief of symptoms ss 10:41 Drug: Zofran (Ondansetron) 4 mg Route: IVP; Site: right antecubital; ss 11:49 Follow up: Response: No adverse reaction ss 11:37 Not Given (Other Intervention Used): Rocephin (cefTRIAXone) 1 grams IV at 1 calculated ss rate once; Given slow IV push per pharmacy instructions 11:49 Drug: Rocephin - (cefTRIAXone) 1 grams Route: IVPB; Infused Over: 30 mins; Site: right ss antecubital; 12:28 Follow up: IV Status: Completed infusion; IV Intake: 50ml Medication: 11:50 VIS not applicable for this client. ss Intake: 11:30 IV: 1000ml; Total: 1000ml. ss 12:28 IV: 50ml; Total: 1050ml. Outcome: 11:53 Discharge ordered by MD. rubio 12:27 Discharged to home ambulatory. ss 12:27 Condition: good 12:27 Discharge instructions given to patient, family, Instructed on discharge instructions, follow up and referral plans. medication usage, Demonstrated understanding of instructions, follow-up care, medications, Prescriptions given X 1. 12:27 Patient left the ED. Signatures: Elayne Raphael RN RN aa5 Carol Espinal RN RN Judy Sanders am2 Joyce Mar kj1 Teresita Basilio, TABLE FILLER TABLE FILLER 7 Corrections: (The following items were deleted from the chart) 09:29 09:27 BP 118 / 86; Pulse 114bpm; Resp 18bpm; Spontaneous; Pulse Ox 100% RA; 49.9 kg aa5 Reported; Height 5 ft. 2 in. Reported; BMI: 20.1; aa5
--- NOTE | 2021-11-25 11:54 | EDPHYS ---
Physician Documentation [facility] Name: Cruzito Eastman Age: 21 yrs Sex: Female : 2000 Arrival Date: 11/25/2021 Time: 09:21 Bed 11 Private MD: Milagros Curiel K ED Physician Magno Herbert HPI: 11/25 09:30 This 21 yrs old Female presents to ER via Ambulatory with complaints of jh7 Abdominal Pain, Nausea/Vomiting. 09:30 Onset: The symptoms/episode began/occurred 5 month(s) ago. Patient presents for jh7 intermittent abdominal pain and nausea/vomiting for the past year. Patient states she has lost 50 pounds over the past 5 months. She states that she has been told to see a specialist multiple times, but that she cannot afford to go see GI. States that this episode started last night and that her stomach is "upset", but not tender. Reports 1 episode of vomiting and continuous nausea. Denies any other concerns at this time.. Historical: - Allergies: 09:26 No Known Allergies; aa5 - PMHx: 09:26 Asthma; Bipolar disorder; PTSD; aa5 - Immunization history:: Adult Immunizations up to date. - Social history:: Smoking status: Patient reports the use of cigarette tobacco products, smokes one-half pack cigarettes per day. ROS: 09:30 Constitutional: Negative for fever, chills, and weight loss, Neck: Negative for injury, jh7 pain, and swelling, Cardiovascular: Negative for chest pain, palpitations, and edema, Respiratory: Negative for shortness of breath, cough, wheezing, and pleuritic chest pain, Back: Negative for injury and pain, : Negative for injury, bleeding, discharge, and swelling, Skin: Negative for injury, rash, and discoloration, Neuro: Negative for headache, weakness, numbness, tingling, and seizure. 09:30 Abdomen/GI: Positive for abdominal pain, nausea and vomiting, Negative for diarrhea, dysphagia, rectal pain, rectal bleeding. 09:30 All other systems are negative. Exam: 09:30 Constitutional: This is a well developed, well nourished patient who is awake, alert, jh7 and in no acute distress. Cardiovascular: Regular rate and rhythm with a normal S1 and S2. No gallops, murmurs, or rubs. Normal PMI, no JVD. No pulse deficits. Respiratory: Lungs have equal breath sounds bilaterally, clear to auscultation and percussion. No rales, rhonchi or wheezes noted. No increased work of breathing, no retractions or nasal flaring. Abdomen/GI: Soft, non-tender, with normal bowel sounds. No distension or tympany. No guarding or rebound. No evidence of tenderness throughout. Skin: Warm, dry with normal turgor. Normal color with no rashes, no lesions, and no evidence of cellulitis. Neuro: Awake and alert, GCS 15, oriented to person, place, time, and situation. Normal gait. Vital Signs: 09:27 BP 118 / 86; Pulse 114; Resp 18 S; Temp 98.5(O); Pulse Ox 100% on R/A; Weight 49.9 kg aa5 (R); Height 5 ft. 2 in. (157.48 cm) (R); 10:30 BP 144 / 59; Pulse 60; Resp 16; Temp 97.0; Pulse Ox 100% on R/A; kj1 09:27 Body Mass Index 20.12 (49.90 kg, 157.48 cm) aa5 MDM: 10:26 Patient medically screened. [facility] 12:00 Differential diagnosis: urinary tract infection, viral syndrome. Data reviewed: vital [facility] signs, nurses notes, lab test result(s). Data interpreted: Pulse oximetry: is 100 %. Interpretation: normal. Counseling: I had a detailed discussion with the patient and/or guardian regarding: the historical points, exam findings, and any diagnostic results supporting the discharge/admit diagnosis, the need for outpatient follow up, a lockstitcher, to return to the emergency department if symptoms worsen or persist or if there are any questions or concerns that arise at home. Response to treatment: the patient's symptoms have markedly improved after treatment. ED course: The patient remained hemodynamically stable throughout the ER visit. Her pain resolved, and she was given Rocephin for her UTI. The patient did admit that she was experiencing dysuria starting this morning. She was strongly advised to follow-up with GI to address her weight loss and intermittent abdominal pain. She was prescribed Macrobid for her UTI. If her symptoms return, or any new concerning symptoms develop, the patient was advised to return to the ER for further eval. The patient understood the plan of care.. 11/25 10:06 Order name: CBC with Diff; Complete Time: 10:59 [facility] 11/25 10:06 Order name: CMP; Complete Time: 11:20 [facility] 11/25 10:06 Order name: Lipase; Complete Time: 11:20 [facility] 11/25 10:06 Order name: Urine Microscopic Only; Complete Time: 11:20 [facility] 11/25 10:56 Order name: Urine Dipstick-Ancillary; Complete Time: 10:59 [facility] 11/25 11:20 Order name: Urine Culture [facility] 11/25 10:06 Order name: IV Saline Lock; Complete Time: 10:40 [facility] 11/25 10:06 Order name: Labs collected and sent; Complete Time: 10:40 [facility] Administered Medications: 10:39 Drug: NS 0.9% 1000 ml Route: IV; Rate: 1 bolus; Site: right antecubital; ss 11:30 Follow up: IV Status: Completed infusion; IV Intake: 1000ml ss 10:40 Drug: Pepcid (famotidine) 20 mg Route: IVP; Site: right antecubital; ss 11:49 Follow up: Response: No adverse reaction; Marked relief of symptoms ss 10:41 Drug: Zofran (Ondansetron) 4 mg Route: IVP; Site: right antecubital; ss 11:49 Follow up: Response: No adverse reaction ss 11:37 Not Given (Other Intervention Used): Rocephin (cefTRIAXone) 1 grams IV at 1 calculated ss rate once; Given slow IV push per pharmacy instructions 11:49 Drug: Rocephin - (cefTRIAXone) 1 grams Route: IVPB; Infused Over: 30 mins; Site: right ss antecubital; 12:28 Follow up: IV Status: Completed infusion; IV Intake: 50ml ss Disposition: 18:14 Co-signature as Attending Physician, Magno Herbert MD. rn Disposition Summary: 11/25/21 11:53 Discharge Ordered Location: Home [facility] Problem: an ongoing problem [facility] Symptoms: are resolved [facility] Condition: Stable [facility] Diagnosis - UTI/ Urinary tract infection, site not specified 7 - Abdominal pain, Generalized 7 Followup: [facility] - With: Milagros Curiel MD - When: 2 - 3 days - Reason: Recheck today's complaints Discharge Instructions: - Discharge Summary Sheet 7 - Urinary Tract Infection, Adult [facility] Forms: - Medication Reconciliation Form 7 - Thank You Letter 7 - Antibiotic Education [facility] - Prescription Opioid Use [facility] Prescriptions: - Macrobid 100 mg Oral Capsule - take 1 capsule by ORAL route every 12 hours for 7 days; 14 capsule; Refills: 0, jh7 Product Selection Permitted Signatures: Dispatcher [employer] Magno Adams MD MD rn Calderon, Audri, RN RN aa5 Carol Espinal RN RN ss Teresita Basilio, CATHETERIZATION LABORATORY TECHNICIAN CATHETERIZATION LABORATORY TECHNICIAN [facility]
[2021-11-25 12:37] VITALS: O2SAT 100
[2021-11-25 12:40] VITALS: BP 144/59; TEMP 97
== END 2021-11-25 12:27 | disposition home or self-care (01) ==
LOC: ER 09:20
DX: N39.0 Urinary tract infection, site not specified (principal); F17.210 Nicotine dependence, cigarettes, uncomplicated
CPT/HCPCS: 96365; 96361; 87088; 85025; 87086; 36415; 83690; 80053; 96375; 99284; J7030; J2405; J3490; 81003; 81015

== ENCOUNTER 2022-02-08 05:17 | Emergency (ER) | payer BC ==
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
[2022-02-08] MEDS ORDERED: MORPHINE 2 MG/ML SYR ONE (06:13)
[2022-02-08] MEDS ORDERED: ONDANSETRON 4 MG/2 ML VIAL ONE (06:13)
[2022-02-08] MEDS ORDERED: NA CHLORIDE 0.9% 1,000 ML ONE ×2 (06:13→08:46)
[2022-02-08] MEDS ORDERED: FAMOTIDINE 20 MG/2 ML VIAL IV ONE (06:14)
[2022-02-08 06:22] LABS: Urine Blood Negative (Negative); Urine Glucose Negative (Negative); Urine Protein Negative (Negative); Urine Specific Gravity >=1.030 (1.005-1.030)
[2022-02-08 06:25] LABS: Hematocrit 41.3 % (36.0-45.0); Lymphocytes % 42.3 % (15.3-44.8); MCV 84.5 fL (80-100); MPV 7.9 fL (7.6-11.3); RBC Red Blood Cell Count 4.88 M/uL (3.86-4.86)
[2022-02-08 06:43] LABS: Albumin 4.2 g/dL (3.4-5.0); Bilirubin Total 1.2 mg/dL (0.2-1.0); Potassium 3.6 mmol/L (3.5-5.1); Protein, Total 7.6 g/dL (6.4-8.2)
--- NOTE | 2022-02-08 07:33 | RAD REPORT ---
EXAM DESCRIPTION: CT - Abdomen Pelvis W Contrast - 02/08/2022 7:07 am CLINICAL HISTORY: Abdominal pain COMPARISON: September 2021 TECHNIQUE: Computed axial tomography of the abdomen pelvis was obtained. 100 cc Isovue-300 was admin istered intravenously. Oral contrast was not requested which limits evaluation of bowel and appendix All CT scans are performed using dose optimization technique as appropriate and may include automated exposure control or mA/KV adjustment according to patient size. FINDINGS: Mild fatty infiltration suspected. Spleen, pancreas, adrenal and kidneys appear unremarkable. There is no evidence of diverticulitis. Normal appendix. Retroverted uterus 2 centimeter right parapelvic cyst without significant free fluid Mild thickening of the wall of distal stomach Moderate amount of stool within the colon IMPRESSION: 2 centimeter right parapelvic cyst without significant free fluid Mild thickening of the wall of the distal stomach may be secondary to incomplete distention or mild i nflammation
--- NOTE | 2022-02-08 08:25 | EDPHYS ---
Physician Documentation [facility] Name: Cruzito Eastman Age: 21 yrs Sex: Female : 2000 Arrival Date: 02/08/2022 Time: 05:20 Bed 20 Private MD: ED Physician Matthew Klein HPI: 02/08 05:53 This 21 yrs old Female presents to ER via Ambulatory with complaints of mh7 Abdominal Pain. 05:53 The patient presents to the emergency department with nausea, that is moderate, mh7 vomiting, that is intermittent, described as clear fluid, diarrhea, that is intermittent, abdominal pain, of the abdomen diffusely, described as intermittent, vague,\E\ waxing and waning, and does not radiate. Onset: The symptoms/episode began/occurred 3 day(s) ago. Possible causes: flare up of bowel problem, cyclic vomiting. The symptoms are aggravated by nothing. The symptoms are alleviated by nothing. Associated signs and symptoms: Pertinent negatives: anorexia, belching, constipation, dysuria, fever, flatulence, GI bleeding, hematuria, vaginal discharge. Severity of symptoms: At their worst the symptoms were moderate yesterday, in the emergency department the symptoms are unchanged. The patient has experienced similar episodes in the past, multiple times. 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 - Social history:: Smoking status: Reported history of juuling and/or vaping. ROS: 05:53 Constitutional: Negative for fever, chills, and weight loss, Eyes: Negative for injury, mh7 pain, redness, and discharge, ENT: Negative for injury, pain, and discharge, Neck: Negative for injury, pain, and swelling, Cardiovascular: Negative for chest pain, palpitations, and edema, Respiratory: Negative for shortness of breath, cough, wheezing, and pleuritic chest pain, Back: Negative for injury and pain, : Negative for injury, bleeding, discharge, and swelling, MS/Extremity: Negative for injury and deformity, Skin: Negative for injury, rash, and discoloration, Neuro: Negative for headache, weakness, numbness, tingling, and seizure, Psych: Negative for depression, anxiety, suicide ideation, homicidal ideation, and hallucinations, Allergy/Immunology: Negative for hives, rash, and allergies, Endocrine: Negative for neck swelling, polydipsia, polyuria, polyphagia, and marked weight changes, Hematologic/Lymphatic: Negative for swollen nodes, abnormal bleeding, and unusual bruising. Exam: 05:53 Head/Face: Normocephalic, atraumatic. Eyes: Pupils equal round and reactive to light, mh7 extra-ocular motions intact. Lids and lashes normal. Conjunctiva and sclera are non-icteric and not injected. Cornea within normal limits. Periorbital areas with no swelling, redness, or edema. Neck: Trachea midline, no thyromegaly or masses palpated, and no cervical lymphadenopathy. Supple, full range of motion without nuchal rigidity, or vertebral point tenderness. No Meningismus. Chest/axilla: Normal chest wall appearance and motion. Nontender with no deformity. No lesions are appreciated. 05:53 Back: No spinal tenderness. No costovertebral tenderness. Full range of motion. Skin: Warm, dry with normal turgor. Normal color with no rashes, no lesions, and no evidence of cellulitis. MS/ Extremity: Pulses equal, no cyanosis. Neurovascular intact. Full, normal range of motion. Neuro: Awake and alert, GCS 15, oriented to person, place, time, and situation. Cranial nerves II-XII grossly intact. Motor strength 5/5 in all extremities. Sensory grossly intact. Cerebellar exam normal. Normal gait. Psych: Awake, alert, with orientation to person, place and time. Behavior, mood, and affect are within normal limits. 05:53 Constitutional: The patient appears in no acute distress, alert, awake, uncomfortable. 05:53 Cardiovascular: Rate: tachycardic, Rhythm: regular, Pulses: no pulse deficits are appreciated, Heart sounds: normal, normal S1and S2, Edema: is not appreciated, JVD: is not appreciated. 05:53 Abdomen/GI: Inspection: abdomen appears normal, Bowel sounds: normal, in all quadrants, Palpation: mild abdominal tenderness, in all quadrants, mass, is not appreciated, rebound tenderness, is not appreciated, voluntary guarding, is not appreciated, involuntary guarding, is not appreciated, no appreciated organomegaly, Indicators: McBurney's point is not tender, Mena's sign is negative, Rovsing's sign is negative, Obturator sign is negative, Psoas sign is negative, Liver: no appreciated palpable abnormalities, Hernia: not appreciated. Vital Signs: 05:32 BP 118 / 87; Pulse 104; Resp 24; Temp 98.4; Pulse Ox 100% ; Weight 43 kg; Height 5 ft. tw5 2 in. (157.48 cm); Pain 9/10; 07:57 BP 127 / 86; Pulse 94; Resp 18; Pulse Ox 100% ; ll1 09:40 BP 121 / 81; Pulse 88; Resp 17; ll1 05:32 Body Mass Index 17.34 (43.00 kg, 157.48 cm) tw5 MDM: 06:16 Transition of care: After a detail discussion of the patient's case, care is [facility] transferred to Matthew Klein MD. 07:14 Patient medically screened. [facility] 02/08 05:52 Order name: CBC with Diff; Complete Time: 07:14 [facility] 02/08 05:52 Order name: CMP; Complete Time: 07:14 [facility] 02/08 05:52 Order name: Lipase; Complete Time: 07:14 [facility] 02/08 06:22 Order name: Urine Dipstick-Ancillary; Complete Time: 07:14 [facility] 02/08 05:52 Order name: IV Saline Lock; Complete Time: 06:22 [facility] 02/08 06:00 Order name: CT Abd/Pelvis - IV Contrast Only; Complete Time: 08:20 [facility] 02/08 05:52 Order name: Labs collected and sent; Complete Time: 06:22 [facility] 02/08 05:52 Order name: Urine Dipstick-Ancillary (obtain specimen); Complete Time: 06:22 [facility] 02/08 05:52 Order name: Urine Test (obtain specimen); Complete Time: 06:22 [facility] 02/08 08:21 Order name: PO challenge; Complete Time: 08:37 [facility] Administered Medications: 06:21 Drug: morphine 2 mg Route: IVP; Infused Over: 4 mins; Site: right forearm; tw5 06:21 Follow up: Response: No adverse reaction tw5 06:22 Drug: NS 0.9% 1000 ml Route: IV; Rate: 1 bolus; Site: right forearm; tw5 07:54 Follow up: Response: No adverse reaction; IV Status: Completed infusion; IV Intake: ll1 1000ml 06:22 Drug: Pepcid (famotidine) 20 mg Route: IVP; Site: right forearm; tw5 06:22 Follow up: Response: No adverse reaction tw5 06:22 Drug: Zofran (Ondansetron) 4 mg Route: IVP; Site: right forearm; tw5 06:22 Follow up: Response: No adverse reaction tw5 08:43 Drug: ProTONIX (pantoprazole) 40 mg Route: IVP; Site: right forearm; ll1 09:46 Follow up: Response: No adverse reaction ll1 08:44 Drug: NS 0.9% 1000 ml Route: IV; Rate: 1 bolus; Site: right forearm; ll1 09:46 Follow up: Response: No adverse reaction; IV Status: Completed infusion; IV Intake: ll1 1000ml Disposition Summary: 02/08/22 08:25 Discharge Ordered Location: Home juan Problem: new juan Symptoms: have improved juan Condition: Stable juan Diagnosis - Acute gastritis juan - Epigastric pain juan - Vomiting juan - Other and unspecified ovarian cysts juan Followup: juan - With: Private Physician - When: 2 - 3 days - Reason: Recheck today's complaints, Re-evaluation by your physician Followup: juan - With: Jeanine Woodard MD - When: 2 - 3 days - Reason: Recheck today's complaints, Re-evaluation by your physician Discharge Instructions: - Discharge Summary Sheet juan - Abdominal Pain, Adult juan - Abdominal Pain, Adult, [id number] juan - Vomiting, Adult juan - Gastritis, Adult juan - Gastritis, Adult, [id number] juan Forms: - Medication Reconciliation Form juan - Thank You Letter juan - Antibiotic Education juan - Prescription Opioid Use juan Prescriptions: - Protonix 40 mg Oral Tablet - take 1 tablet by ORAL route once daily; 30 tablet; Refills: 0, Product juan Selection Permitted - Zofran 4 mg Oral Tablet - take 1 tablet by ORAL route every 12 hours As needed; 20 tablet; Refills: 0, [facility] Product Selection Permitted - promethazine 25 mg Oral Tablet - take 1 tablet by ORAL route every 6 hours As needed; 20 tablet; Refills: 0, [facility] Product Selection Permitted - dicyclomine 20 mg Oral Tablet - take 1 tablet by ORAL route 4 times per day; 28 tablet; Refills: 0, Product juan Selection Permitted Signatures: Dispatcher [employer] Matthew Rhodes MD MD cha Lewis, Lynsay, RN RN ll1 Thierno Small MD MD mh7 Kristy Cardoza 5
--- NOTE | 2022-02-08 08:25 | ER ---
Nurse's Notes [facility] Name: Cruzito Eastman Age: 21 yrs Sex: Female : 2000 Arrival Date: 02/08/2022 Time: 05:20 Bed 20 Private MD: Diagnosis: Acute gastritis;Epigastric pain;Vomiting;Other and unspecified ovarian cysts Presentation: 02/08 05:32 Chief complaint: Patient states: "I have cyclical vomiting. I have not been able to tw5 keep anything down for three days now. I have been vomiting, diarrhea and I am in a lot of pain.". Coronavirus screen: Vaccine status: Patient reports being unvaccinated. Ebola Screen: Patient negative for fever greater than or equal to 101.5 degrees Fahrenheit, and additional compatible Ebola Virus Disease symptoms Patient denies exposure to infectious person. Patient denies travel to an Ebola-affected area in the 21 days before illness onset. Initial Sepsis Screen: Does the patient meet any 2 criteria? RR > 20 per min. HR > 90 bpm. Does the patient have a suspected source of infection? Yes: Acute abdominal pain. Initial Sepsis Screen: If YES to both, name of provider notified: Thierno Small MD Risk Assessment: Do you want to hurt yourself or someone else? Patient reports no desire to harm self or others. Onset of symptoms was February 05, 2022. 05:32 Method Of Arrival: Ambulatory tw5 05:32 Acuity: DONI 3 tw5 Triage Assessment: 05:34 General: Appears uncomfortable, slender, Behavior is calm, cooperative, appropriate for tw5 age. Pain: Pain currently is 9 out of 10 on a pain scale. GI: Abdomen is flat, non-distended. 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 - Social history:: Smoking status: Reported history of juuling and/or vaping. Screenin:35 Abuse screen: Denies threats or abuse. Denies injuries from another. Nutritional tw5 screening: Has had N/V for 3 or more days. Tuberculosis screening: No symptoms or risk factors identified. Fall Risk None identified. Assessment: 06:23 General: Appears in no apparent distress. comfortable, Behavior is calm, cooperative, tw5 fussy. Pain: Complains of pain in abdomen diffusely. Neuro: No deficits noted. Level of Consciousness is awake, alert, obeys commands, Oriented to person, place, time, situation. Cardiovascular: No deficits noted. Denies chest pain, shortness of breath, Capillary refill < 3 seconds Clubbing of nail beds is absent JVD is absent Patient's skin is warm and dry. Respiratory: No deficits noted. Airway is patent Trachea midline Respiratory effort is even, unlabored, Respiratory pattern is regular, symmetrical, Breath sounds are clear bilaterally. GI: Abdomen is flat, non-distended, Bowel sounds present X 4 quads. Abd is soft X 4 quads Abdomen is tender to palpation X 4 quads. Reports lower abdominal pain, upper abdominal pain, cramping, intolerance of fluids, intolerance of food, nausea, vomiting. : No deficits noted. No signs and/or symptoms were reported regarding the genitourinary system. EENT: No deficits noted. No signs and/or symptoms were reported regarding the EENT system. Derm: No deficits noted. No signs and/or symptoms reported regarding the dermatologic system. Skin is intact, is healthy with good turgor, Skin is dry, Skin temperature is warm. Musculoskeletal: No deficits noted. No signs and/or symptoms reported regarding the musculoskeletal system. Circulation, motion, and sensation intact. Range of motion: intact in all extremities. 07:05 Reassessment: No changes from previously documented assessment. Report received from ll1 warehouse worker 2nd shift RN. 08:00 Reassessment: No changes from previously documented assessment. Patient and/or family ll1 updated on plan of care and expected duration. Pain level reassessed. Patient is alert, oriented x 3, equal unlabored respirations, skin warm/dry/pink. 09:00 Reassessment: No changes from previously documented assessment. Patient and/or family ll1 updated on plan of care and expected duration. Pain level reassessed. 09:40 Reassessment: No changes from previously documented assessment. Patient and/or family ll1 updated on plan of care and expected duration. Pain level reassessed. Patient is alert, oriented x 3, equal unlabored respirations, skin warm/dry/pink. tolerating PO fluids. Vital Signs: 05:32 BP 118 / 87; Pulse 104; Resp 24; Temp 98.4; Pulse Ox 100% ; Weight 43 kg; Height 5 ft. tw5 2 in. (157.48 cm); Pain 9/10; 07:57 BP 127 / 86; Pulse 94; Resp 18; Pulse Ox 100% ; ll1 09:40 BP 121 / 81; Pulse 88; Resp 17; ll1 05:32 Body Mass Index 17.34 (43.00 kg, 157.48 cm) tw5 ED Course: 05:20 Patient arrived in ED. bp1 05:34 Triage completed. tw5 05:34 Arm band placed on Patient placed in an exam room, on a stretcher, on pulse oximetry. tw5 05:35 Patient has correct armband on for positive identification. Placed in gown. Bed in low tw5 position. Call light in reach. Adult w/ patient. Pulse ox on. NIBP on. Door closed. Noise minimized. Moved to private room. Warm blanket given. Verbal reassurance given. 05:35 No provider procedures requiring assistance completed. tw5 05:36 Thierno Small MD is Attending Physician. 7 05:45 Kristy Cardoza is Primary Nurse. tw5 06:22 CBC with Diff Sent. tw5 06:22 CMP Sent. tw5 06:22 Lipase Sent. tw5 06:23 Inserted saline lock: 20 gauge in right forearm, using aseptic technique. Blood tw5 collected. 07:09 CT Abd/Pelvis - IV Contrast Only In Process Unspecified. EDMS 07:14 Attending Physician role handed off by Thierno Small MD juan 07:14 Matthew Klein MD is Attending Physician. juan 08:24 Jeanine Woodard MD is Referral Physician. juan Administered Medications: 06:21 Drug: morphine 2 mg Route: IVP; Infused Over: 4 mins; Site: right forearm; tw5 06:21 Follow up: Response: No adverse reaction tw5 06:22 Drug: NS 0.9% 1000 ml Route: IV; Rate: 1 bolus; Site: right forearm; tw5 07:54 Follow up: Response: No adverse reaction; IV Status: Completed infusion; IV Intake: ll1 1000ml 06:22 Drug: Pepcid (famotidine) 20 mg Route: IVP; Site: right forearm; tw5 06:22 Follow up: Response: No adverse reaction tw5 06:22 Drug: Zofran (Ondansetron) 4 mg Route: IVP; Site: right forearm; tw5 06:22 Follow up: Response: No adverse reaction tw5 08:43 Drug: ProTONIX (pantoprazole) 40 mg Route: IVP; Site: right forearm; ll1 09:46 Follow up: Response: No adverse reaction ll1 08:44 Drug: NS 0.9% 1000 ml Route: IV; Rate: 1 bolus; Site: right forearm; ll1 09:46 Follow up: Response: No adverse reaction; IV Status: Completed infusion; IV Intake: ll1 1000ml Medication: 05:35 VIS not applicable for this client. tw5 Intake: 07:54 IV: 1000ml; Total: 1000ml. ll1 09:46 IV: 1000ml; Total: 2000ml. 1 Outcome: 08:25 Discharge ordered by MD. martinez 09:47 Patient left the ED. [facility] Signatures: Dispatcher [employer] EDMatthew Mcdonald MD MD cha Lewis, Lynsay, RN RN ll1 Shu Davis Maurice, MD MD mh7 Wood, Tiffany tw5
[2022-02-08] MEDS ORDERED: PANTOPRAZOLE 40 MG INJ ONE (08:46)
[2022-02-08 10:20] VITALS: TEMP 98.4; O2SAT 100
[2022-02-08 10:24] VITALS: BP 121/81
== END 2022-02-08 09:47 | disposition home or self-care (01) ==
LOC: ER 05:17
DX: K29.00 Acute gastritis without bleeding (principal); N83.299 Other ovarian cyst, unspecified side; R11.10 Vomiting, unspecified
CPT/HCPCS: 96361; 85025; 36415; 81003; 83690; 80053; 74177; 96375; 96374; 99284; Q9967; C9113; J7030 ×2; J2270; J2405